=== PATIENT | male | born 1965 | race Two or more races ===

== ENCOUNTER 2020-06-10 17:41 | Emergency (ER) | payer MEDICAID ==
[~2020-06-10] VITALS: Ht 180.3 cm; Wt 139.7 kg
[~2020-06-10 17:41] MED LIST: ATOR20TA50 PO; CHOL500023 PO; GLIM4TAB42 PO; LATA0.0019 EACHEYE; LISI-648 PO; METF-916 PO; METH10TA6 PO; OMEP-263 PO
[2020-06-10 17:52] VITALS: BP 153/110
[2020-06-10] MEDS ORDERED: ACETAMINOPHEN 500 MG TAB PO ONE ×2 (20:15→20:52)
== END 2020-06-10 21:38 | disposition home or self-care (01) ==
LOC: ER 17:41 → MERGE 17:41 → ER 21:38
DX: U07.1 COVID-19 (principal); M25.551 Pain in right hip; E66.9 Obesity, unspecified; E11.9 Type 2 diabetes mellitus without complications; I10 Essential (primary) hypertension; Z68.41 Body mass index [BMI] 40.0-44.9, adult

== ENCOUNTER 2020-12-30 11:59 | Emergency (ER) | payer MEDICAID ==
[~2020-12-30] VITALS: Ht 170.2 cm; Wt 99.8 kg
[~2020-12-30 11:59] MED LIST changes: -LISI-648 PO; +LISI-716 PO
[2020-12-30 13:46] LABS: Basophils # (auto) 0 10 ^3/uL (0-0.2); Basophils % (auto) 0.5 % (0.0-2.0); Eosinophils # (auto) 0.2 10 ^3/uL (0-0.8); Eosinophils % (auto) 2.1 % (0.0-7.0); Hematocrit 40.8 % (41.0-53.0); Hemoglobin 13.6 g/dL (13.5-17.5); Lymphocytes # (auto) 2.1 10 ^3/uL (0.4-5.4); Lymphocytes % (auto) 27.9 % (10.0-50.0); Mean Corpuscular Hemoglobin 28.6 pg (28.0-32.0); Mean Corpuscular Hgb Conc. 33.4 g/dL (32.0-36.0); Mean Corpuscular Volume 85.7 fL (80.0-100.0); Monocytes # (auto) 0.4 10 ^3/uL (0-1.3); Monocytes % (auto) 5.7 % (0.0-12.0); Neutrophils # (auto) 4.9 10 ^3/uL (1.6-8.6); Neutrophils % (auto) 63.8 % (37.0-80.0); Nucleated Red Blood Cells % 0.1 %; Red Blood Cells 4.76 10^6/uL (4.5-5.90); Red Cell Distribution Width 15.2 % (11.8-14.3); White Blood Cell 7.7 10^3/uL (4.4-10.8)
[2020-12-30 13:55] LABS: Alcohol, Urine < 3.0 mg/dL (0-10); Amphetamine Screen, Urine NEGATIVE (NEGATIVE); Barbiturate Scree,Urine NEGATIVE (NEGATIVE); Benzodiazephine Screen, Urine NEGATIVE (NEGATIVE); Cannabinoid Screen, Urine NEGATIVE (NEGATIVE); Cocaine Screen, Urine NEGATIVE (NEGATIVE); Opiate Scree,Urine NEGATIVE (NEGATIVE); Phencyclidine Screen, Urine NEGATIVE (NEGATIVE); Urine Bacteria NONE SEEN /hpf (None Seen); Urine Blood Negative /uL (Negative); Urine Specific Gravity 1.012 (1.001-1.035); Urine WBC 1 /hpf (0 - 3)
[2020-12-30 14:15] LABS: Albumin 3.6 g/dL (3.4-5.0); Anion Gap 6 (5-15); Blood Urea Nitrogen 15 mg/dL (7-18); Calcium 8.8 mg/dL (8.5-10.1); Carbon Dioxide 28 mmol/L (21-32); Chloride 107 mmol/L (98-107); Glucose 67 mg/dL (74-106); Magnesium 2.2 mg/dL (1.6-2.6); Potassium 3.5 mmol/L (3.5-5.1); Sodium 141 mmol/L (136-145)
[2020-12-30 14:16] LABS: Salicylate 1.7 mg/dL (2.8-20.0)
[2020-12-30 14:18] LABS: Alanine Aminotransferase 20 U/L (16-61); Aspartate Aminotransferase 16 U/L (15-37); BUN/Creatinine Ratio 14.9; Blood Alcohol < 3.0 mg/dL (0-5); GFR African American 99 mL/min; GFR Non-African American 82 mL/min
[2020-12-30 14:20] LABS: Alkaline Phosphatase 99 U/L (45-117); Bilirubin, Total 0.4 mg/dL (0.2-1.0); Total Protein 8.3 g/dL (6.4-8.2)
[2020-12-30 14:28] LABS: Acetaminophen < 2.0 ug/mL (10-30)
[2020-12-30 22:15] VITALS: BP 127/71
== END 2020-12-30 22:13 | disposition home or self-care (01) ==
LOC: EDBD 11:59 → EDUNIT# 11:59 → ER 11:59
DX: R45.851 Suicidal ideations (principal); F32.9 Major depressive disorder, single episode, unspecified; E11.9 Type 2 diabetes mellitus without complications; I11.0 Hypertensive heart disease with heart failure; I50.9 Heart failure, unspecified
CPT/HCPCS: 36415; 80053; 80307; 80320; 80329; 81001; 83735; 85025; 85049

== ENCOUNTER 2021-05-06 04:46 | Inpatient (IN) | payer MEDICAID ==
[~2021-05-06] VITALS: Ht 170.2 cm; Wt 134.0 kg
[2021-05-06 05:57] LABS: Basophils # (auto) 0.1 10 ^3/uL (0-0.2); Basophils % (auto) 0.6 % (0.0-2.0); Eosinophils # (auto) 1.3 10 ^3/uL (0-0.8); Eosinophils % (auto) 13.3 % (0.0-7.0); Hematocrit 38.3 % (41.0-53.0); Hemoglobin 12.6 g/dL (13.5-17.5); Lymphocytes # (auto) 1.4 10 ^3/uL (0.4-5.4); Lymphocytes % (auto) 14.4 % (10.0-50.0); Monocytes # (auto) 0.6 10 ^3/uL (0-1.3); Monocytes % (auto) 5.9 % (0.0-12.0); Neutrophils # (auto) 6.4 10 ^3/uL (1.6-8.6); Neutrophils % (auto) 65.8 % (37.0-80.0); Red Blood Cells 4.51 10^6/uL (4.5-5.90); Red Cell Distribution Width 15.2 % (11.8-14.3); White Blood Cell 9.8 10^3/uL (4.4-10.8)
[2021-05-06 06:18] LABS: Albumin 2.9 g/dL (3.4-5.0); Calcium 8.9 mg/dL (8.5-10.1); Potassium 3.5 mmol/L (3.5-5.1)
[2021-05-06 06:19] LABS: BUN/Creatinine Ratio 14.3
[2021-05-06 06:25] LABS: Bilirubin, Total 0.5 mg/dL (0.2-1.0); Total Protein 7.7 g/dL (6.4-8.2)
[2021-05-06 06:29] LABS: INR 1.03 (0.9-1.15); Partial Thromboplastin Time 26.3 sec (23.6-33.0)
[2021-05-06] MEDS ORDERED: IOHEXOL 350 MG/ML 100ML IJ ONE (10:39)
[2021-05-06] MEDS ORDERED: methylPREDNISolone SOD SUCC 125 MG/2 ML VL IV ONE (15:15)
[2021-05-06] MEDS ORDERED: cefTRIAXone 1GM/50ML D5W 50 ML IV ONE (15:15)
[2021-05-06] MEDS ORDERED: SPIRONOLACTONE 25 MG TAB PO ONE (15:15)
[2021-05-06] MEDS ORDERED: FUROSEMIDE 40 MG/4 ML VIAL IV ONE (15:15)
[2021-05-06] MEDS ORDERED: NITROGLYCERIN 0.4 MG SL TAB SL PRN (15:45)
[2021-05-06] MEDS ORDERED: MORPHINE SULFATE INJECTION 2 MG/ML SYRG IV PRN (15:45)
[2021-05-06] MEDS ORDERED: ONDANSETRON HCL 4 MG/2 ML VIAL IV PRN (15:45)
[2021-05-06] MEDS ORDERED: HYDROcodone-ACET 5/325MG TAB PO PRN (15:45)
[2021-05-06] MEDS ORDERED: ACETAMINOPHEN 325 MG TAB PO PRN (15:45)
[2021-05-06] MEDS ORDERED: MORPHINE SULFATE 4 MG/ML SYR/VIAL IV PRN (15:45)
[2021-05-06] MEDS ORDERED: DOXYCYCLINE 100MG/250ML 250 ML IV ONE (15:45)
[2021-05-06] MEDS: FUROSEMIDE 40 MG/4 ML VIAL IV SCH (18:30)
[2021-05-06 22:00] VITALS: BP 131/53
[2021-05-07 05:00] VITALS: BP 120/60
[2021-05-07] MEDS: FUROSEMIDE 40 MG/4 ML VIAL IV SCH ×2 (05:50→17:03)
[2021-05-07 09:00] VITALS: BP 116/77
[2021-05-07] MEDS: ENOXAPARIN SOD 40 MG/0.4 ML SYRINGE SC SCH (10:14)
[2021-05-07] MEDS ORDERED: DEXTROSE (50%) 50ML SYRG IV PRN (12:30)
[2021-05-07 13:04] VITALS: BP 126/71
[2021-05-07] MEDS: DOXYCYCLINE 100MG/250ML 250 ML IV SCH (16:14)
[2021-05-07] MEDS: InsuLIN REG 1unit/0.01ml Soln (100units/ml) SC SCH ×2 (17:02→22:31)
[2021-05-07] MEDS: ACCU-CHEK COMFORT CURVE STRIP VI SCH ×2 (17:02→22:31)
[2021-05-07 17:05] VITALS: BP 124/71
[2021-05-07 22:00] VITALS: BP 116/74
[2021-05-08] MEDS: DOXYCYCLINE 100MG/250ML 250 ML IV SCH ×2 (01:00→15:01)
[2021-05-08 05:00] VITALS: BP 111/65
[2021-05-08] MEDS: ACCU-CHEK COMFORT CURVE STRIP VI SCH ×4 (06:29→21:54)
[2021-05-08] MEDS: FUROSEMIDE 40 MG/4 ML VIAL IV SCH ×2 (06:29→18:11)
[2021-05-08] MEDS: InsuLIN REG 1unit/0.01ml Soln (100units/ml) SC SCH ×4 (06:30→21:54)
[2021-05-08 08:30] VITALS: BP 111/61
[2021-05-08] MEDS: ENOXAPARIN SOD 40 MG/0.4 ML SYRINGE SC SCH (11:41)
[2021-05-08 12:30] VITALS: BP 100/67
[2021-05-08 17:00] VITALS: BP 110/70
[2021-05-08 20:22] VITALS: BP 101/71
[2021-05-09] MEDS: DOXYCYCLINE 100MG/250ML 250 ML IV SCH ×2 (02:33→13:40)
[2021-05-09 05:00] VITALS: BP 142/63
[2021-05-09] MEDS: ACCU-CHEK COMFORT CURVE STRIP VI SCH ×4 (06:14→21:41)
[2021-05-09] MEDS: InsuLIN REG 1unit/0.01ml Soln (100units/ml) SC SCH ×5 (06:33→21:39)
[2021-05-09] MEDS: FUROSEMIDE 40 MG/4 ML VIAL IV SCH ×2 (06:34→18:00)
[2021-05-09 09:00] VITALS: BP 104/67
[2021-05-09] MEDS: ENOXAPARIN SOD 40 MG/0.4 ML SYRINGE SC SCH (10:00)
[2021-05-09] MEDS ORDERED: IODIXANOL 320MG/ML 100ML BTL IV ONE (11:35)
[2021-05-09] MEDS ORDERED: LIDOCAINE 2%HCL (LOCAL ANESTH.) INJ 20ML MDV ONE (11:35)
[2021-05-09] MEDS ORDERED: MIDAZOLAM HCL 2MG/2ML 2ml VIAL (1mg/ml) ONE (11:57)
[2021-05-09] MEDS ORDERED: fentaNYL CITRATE 100 MCG/2 ML VL ONE (11:57)
[2021-05-09] MEDS ORDERED: ANGIOMAX 250 MG VIAL IV ONE (11:57)
[2021-05-09] MEDS ORDERED: SODIUM CHL 0.9% 0 ML ONE (11:57)
[2021-05-09 17:13] VITALS: BP 118/73
[2021-05-09 19:37] VITALS: BP 118/73
== END 2021-05-09 22:45 | disposition home or self-care (01) | DRG 194 ==
LOC: EDBD 04:46 → ER 04:46 → TELE 15:41 → TELE-CENTR 20:32
PROVIDERS: ADMIT Internal Medicine; ATTEND Internal Medicine
PROC: B41GYZZ Fluoroscopy of Left Lower Extremity Arteries using Other Contrast (ICD-10-PCS; principal; 2021-05-09)
PROC: B41FYZZ Fluoroscopy of Right Lower Extremity Arteries using Other Contrast (ICD-10-PCS; 2021-05-09)
DX: I11.0 Hypertensive heart disease with heart failure (principal); E11.9 Type 2 diabetes mellitus without complications; E66.01 Morbid (severe) obesity due to excess calories; L02.419 Cutaneous abscess of limb, unspecified; I87.2 Venous insufficiency (chronic) (peripheral); I50.9 Heart failure, unspecified; K80.20 Calculus of gallbladder without cholecystitis without obstruction; Z20.822 Contact with and (suspected) exposure to COVID-19; Z68.42 Body mass index [BMI] 45.0-49.9, adult; Z80.0 Family history of malignant neoplasm of digestive organs; Z82.49 Family history of ischemic heart disease and other diseases of the circulatory system; Z83.3 Family history of diabetes mellitus
CPT/HCPCS: 36415; 71045; 71275; 75716; 80053; 82962; 83036; 83735; 83880; 84443; 84484; 85025; 85379; 85610; 85652; 85730; 87426; 93005; 93306; 93925; 93970; 96365; 96368; 96375; 99152; G0378; J0696; J1815; J2250; J3490; Q9967

== ENCOUNTER 2021-12-19 13:24 | Inpatient (IN) | payer MEDICAID ==
[~2021-12-19] VITALS: Ht 172.7 cm; Wt 127.9 kg
[2021-12-19] MEDS ORDERED: DEXTROSE (50%) 50ML SYRG IV ONE ×4 (14:15→15:30)
[2021-12-19 14:18] LABS: Basophils # (auto) 0 10 ^3/uL (0-0.2); Basophils % (auto) 0.3 % (0.0-2.0); Eosinophils # (auto) 0 10 ^3/uL (0-0.8); Eosinophils % (auto) 0.1 % (0.0-7.0); Hemoglobin 12.1 g/dL (13.5-17.5); Lymphocytes # (auto) 1.1 10 ^3/uL (0.4-5.4); Lymphocytes % (auto) 9.5 % (10.0-50.0); Mean Corpuscular Hemoglobin 27.5 pg (28.0-32.0); Mean Corpuscular Hgb Conc. 33.7 g/dL (32.0-36.0); Mean Corpuscular Volume 81.8 fL (80.0-100.0); Monocytes # (auto) 0.4 10 ^3/uL (0-1.3); Monocytes % (auto) 3.8 % (0.0-12.0); Neutrophils # (auto) 9.6 10 ^3/uL (1.6-8.6); Neutrophils % (auto) 86.3 % (37.0-80.0); Red Cell Distribution Width 15.2 % (11.8-14.3); White Blood Cell 11.1 10^3/uL (4.4-10.8)
[2021-12-19 14:39] LABS: Albumin 3.1 g/dL (3.4-5.0); Calcium 8.6 mg/dL (8.5-10.1); Potassium 3.4 mmol/L (3.5-5.1)
[2021-12-19 14:43] LABS: BUN/Creatinine Ratio 11.1; Bilirubin, Total 0.3 mg/dL (0.2-1.0); Total Protein 7.4 g/dL (6.4-8.2)
[2021-12-19] MEDS ORDERED: ACCU-CHEK COMFORT CURVE STRIP VI ONE ×2 (15:00→15:15)
[2021-12-19 15:17] LABS: Salicylate < 1.7 mg/dL (2.8-20.0)
[2021-12-19 15:26] LABS: Acetaminophen < 2.0 ug/mL (10-30)
[2021-12-19] MEDS: DEXTROSE 10% 1,000 ML IV SCH (17:01)
[2021-12-19] MEDS ORDERED: ACETAMINOPHEN 325 MG TAB PO PRN (21:30)
[2021-12-19] MEDS ORDERED: HYDROcodone-ACET 5/325MG TAB PO PRN (21:30)
[2021-12-19] MEDS: ACCU-CHEK COMFORT CURVE STRIP VI SCH (23:30)
[2021-12-20] MEDS: FAMOTIDINE 20 MG TAB PO SCH ×3 (00:20→22:18)
[2021-12-20 00:34] LABS: Alcohol, Urine < 3.0 mg/dL (0-10); Amphetamine Screen, Urine NEGATIVE (NEGATIVE); Barbiturate Scree,Urine NEGATIVE (NEGATIVE); Cannabinoid Screen, Urine NEGATIVE (NEGATIVE); Cocaine Screen, Urine NEGATIVE (NEGATIVE); Opiate Scree,Urine NEGATIVE (NEGATIVE); Phencyclidine Screen, Urine NEGATIVE (NEGATIVE)
[2021-12-20 00:56] LABS: Benzodiazephine Screen, Urine NEGATIVE (NEGATIVE)
[2021-12-20] MEDS: levoFLOXacin 500MG 100 ML IV SCH ×2 (02:57→10:14)
[2021-12-20] MEDS: DEXTROSE 10% 1,000 ML IV SCH ×3 (03:41→23:19)
[2021-12-20 06:15] LABS: Basophils # (auto) 0.1 10 ^3/uL (0-0.2); Basophils % (auto) 0.7 % (0.0-2.0); Eosinophils # (auto) 0.1 10 ^3/uL (0-0.8); Eosinophils % (auto) 1.4 % (0.0-7.0); Lymphocytes # (auto) 1.5 10 ^3/uL (0.4-5.4); Lymphocytes % (auto) 15.2 % (10.0-50.0); Mean Corpuscular Hemoglobin 27.4 pg (28.0-32.0); Mean Corpuscular Hgb Conc. 33.4 g/dL (32.0-36.0); Mean Corpuscular Volume 81.9 fL (80.0-100.0); Monocytes # (auto) 0.7 10 ^3/uL (0-1.3); Monocytes % (auto) 6.8 % (0.0-12.0); Neutrophils # (auto) 7.6 10 ^3/uL (1.6-8.6); Neutrophils % (auto) 75.9 % (37.0-80.0); Red Blood Cells 4.39 10^6/uL (4.5-5.90); Red Cell Distribution Width 14.9 % (11.8-14.3)
[2021-12-20 06:32] LABS: BUN/Creatinine Ratio 11.4; Calcium 8.5 mg/dL (8.5-10.1); Potassium 3.3 mmol/L (3.5-5.1)
[2021-12-20] MEDS ORDERED: DEXTROSE (50%) 50ML SYRG IV ONE ×4 (07:15→15:15)
[2021-12-20] MEDS: ACCU-CHEK COMFORT CURVE STRIP VI SCH ×4 (07:26→22:15)
[2021-12-20 10:29] LABS: Urine Bacteria NONE SEEN /hpf (None Seen); Urine Blood Negative /uL (Negative); Urine Specific Gravity 1.007 (1.001-1.035); Urine WBC 3 /hpf (0 - 3)
[2021-12-20] MEDS ORDERED: POTASSIUM CHL 20MEQ/100ML 100 ML IV ONE (13:30)
[2021-12-20] MEDS ORDERED: NITROGLYCERIN 0.4 MG SL TAB SL PRN (13:30)
[2021-12-20] MEDS ORDERED: MORPHINE SULFATE INJ 2 MG/ml SYRG IV PRN ×2 (13:30→15:30)
[2021-12-20] MEDS ORDERED: POTASSIUM EFFERVESENT TAB 25 MEQ PO ONE (14:15)
[2021-12-20 14:33] LABS: BUN/Creatinine Ratio 9.7; Calcium 8.7 mg/dL (8.5-10.1); Potassium 3.5 mmol/L (3.5-5.1)
[2021-12-20] MEDS ORDERED: GLUCAGON HYDROCHLORIDE (RDNA) 1 MG VIAL SUBCUT ONE (15:15)
[2021-12-20] MEDS ORDERED: ACETAMINOPHEN 325 MG TAB PO PRN (15:30)
[2021-12-20] MEDS: SODIUM CHLORIDE 0.9% 1,000 ML IV SCH (15:30)
[2021-12-20] MEDS ORDERED: hydrALAZINE HCL 20 MG/ML VL IV PRN (15:30)
[2021-12-20] MEDS ORDERED: LORazepam 2MG/ML-1ML VIAL IV PRN (15:30)
[2021-12-20] MEDS ORDERED: HYDROcodone-ACET 5/325MG TAB PO PRN (15:30)
[2021-12-20] MEDS ORDERED: LORazepam 0.5 MG TAB PO PRN (15:30)
[2021-12-20] MEDS ORDERED: ONDANSETRON HCL 4 MG/2 ML VIAL IV PRN (15:30)
[2021-12-20] MEDS ORDERED: DOCUSATE SOD 100 MG CAP PO PRN (15:30)
[2021-12-20] MEDS ORDERED: methIMAzole 5 MG TAB PO ONE (15:30)
[2021-12-20] MEDS: DOXYCYCLINE 100MG/250ML 250 ML IV SCH (16:11)
[2021-12-20 17:40] LABS: INR 1.1 (0.9-1.15)
[2021-12-20 17:44] LABS: Magnesium 2.3 mg/dL (1.6-2.6)
[2021-12-20] MEDS: TAMSULOSIN HYDROCHLORIDE 0.4 MG CAP PO SCH (18:00)
[2021-12-20] MEDS: ATORVASTATIN 20 MG TAB PO SCH (22:18)
[2021-12-20] MEDS: CLINDAMYCIN 600MG IV 50 ML IV SCH (22:19)
[2021-12-20] MEDS: GABAPENTIN 300 MG CAP PO SCH (22:21)
[2021-12-21] MEDS: DOXYCYCLINE 100MG/250ML 250 ML IV SCH (03:47)
[2021-12-21] MEDS: GABAPENTIN 300 MG CAP PO SCH ×3 (05:57→21:18)
[2021-12-21] MEDS: CLINDAMYCIN 600MG IV 50 ML IV SCH (05:57)
[2021-12-21 06:30] LABS: Basophils # (auto) 0.2 10 ^3/uL (0-0.2); Basophils % (auto) 2.1 % (0.0-2.0); Eosinophils # (auto) 0.2 10 ^3/uL (0-0.8); Eosinophils % (auto) 2.2 % (0.0-7.0); Hematocrit 35.5 % (41.0-53.0); Hemoglobin 12.2 g/dL (13.5-17.5); Lymphocytes # (auto) 1.4 10 ^3/uL (0.4-5.4); Lymphocytes % (auto) 17.1 % (10.0-50.0); Mean Corpuscular Hemoglobin 28.3 pg (28.0-32.0); Mean Corpuscular Hgb Conc. 34.4 g/dL (32.0-36.0); Mean Corpuscular Volume 82.5 fL (80.0-100.0); Monocytes # (auto) 0.6 10 ^3/uL (0-1.3); Monocytes % (auto) 7.4 % (0.0-12.0); Neutrophils # (auto) 5.9 10 ^3/uL (1.6-8.6); Neutrophils % (auto) 71.2 % (37.0-80.0); Nucleated Red Blood Cells % 0.1 %; Red Blood Cells 4.31 10^6/uL (4.5-5.90); White Blood Cell 8.3 10^3/uL (4.4-10.8)
[2021-12-21 06:45] LABS: INR 1.12 (0.9-1.15); Partial Thromboplastin Time 28.7 sec (23.6-33.0)
[2021-12-21 06:46] LABS: Magnesium 2.2 mg/dL (1.6-2.6); Potassium 3.2 mmol/L (3.5-5.1); Uric Acid 5.2 mg/dL (3.5-7.2)
[2021-12-21] MEDS: ACCU-CHEK COMFORT CURVE STRIP VI SCH ×4 (06:48→21:17)
[2021-12-21 06:57] LABS: Albumin 2.7 g/dL (3.4-5.0); Bilirubin, Total 0.5 mg/dL (0.2-1.0); CRP High Sensitivity 0.78 mg/dL (< 0.3); Calcium 8.4 mg/dL (8.5-10.1); Total Protein 6.6 g/dL (6.4-8.2)
[2021-12-21 08:10] VITALS: BP 141/70
[2021-12-21] MEDS: SODIUM CHLORIDE 0.9% 1,000 ML IV SCH (08:10)
[2021-12-21] MEDS: DEXTROSE 10% 1,000 ML IV SCH ×2 (09:00→19:00)
[2021-12-21 09:24] LABS: Thyroid Stimulating Hormone 0.76 uIU/mL (0.358-3.74)
[2021-12-21] MEDS: levoFLOXacin 500MG 100 ML IV SCH (10:57)
[2021-12-21] MEDS: ASPirin 81 mg TAB PO SCH (10:57)
[2021-12-21] MEDS: BENAZEPRIL HCL 10 MG TAB PO SCH (10:58)
[2021-12-21] MEDS: FAMOTIDINE 20 MG TAB PO SCH ×2 (10:58→21:18)
[2021-12-21] MEDS: ENOXAPARIN SOD 40 MG/0.4 ML SYRINGE SC SCH (10:59)
[2021-12-21] MEDS: CHOLECALCIFEROL (VITD3) 2,000 UNIT CAP/TAB PO SCH (10:59)
[2021-12-21] MEDS: methIMAzole 5 MG TAB PO SCH (10:59)
[2021-12-21 13:00] VITALS: BP 123/53
[2021-12-21 17:00] VITALS: BP 126/59
[2021-12-21] MEDS: TAMSULOSIN HYDROCHLORIDE 0.4 MG CAP PO SCH (18:21)
[2021-12-21] MEDS: ATORVASTATIN 20 MG TAB PO SCH (21:19)
[2021-12-21 22:02] VITALS: BP 122/61
[2021-12-22] MEDS: SODIUM CHLORIDE 0.9% 1,000 ML IV SCH (00:46)
[2021-12-22] MEDS: DEXTROSE 10% 1,000 ML IV SCH (04:02)
[2021-12-22] MEDS: GABAPENTIN 300 MG CAP PO SCH ×3 (06:02→21:59)
[2021-12-22] MEDS: ACCU-CHEK COMFORT CURVE STRIP VI SCH ×4 (06:03→22:00)
[2021-12-22 07:51] LABS: Basophils # (auto) 0.1 10 ^3/uL (0-0.2); Eosinophils # (auto) 0.3 10 ^3/uL (0-0.8); Eosinophils % (auto) 3.6 % (0.0-7.0); Hematocrit 35.7 % (41.0-53.0); Hemoglobin 12.1 g/dL (13.5-17.5); Lymphocytes # (auto) 1.9 10 ^3/uL (0.4-5.4); Lymphocytes % (auto) 25.3 % (10.0-50.0); Mean Corpuscular Hemoglobin 27.9 pg (28.0-32.0); Mean Corpuscular Hgb Conc. 33.9 g/dL (32.0-36.0); Mean Corpuscular Volume 82.3 fL (80.0-100.0); Monocytes # (auto) 0.4 10 ^3/uL (0-1.3); Monocytes % (auto) 5.8 % (0.0-12.0); Neutrophils # (auto) 4.7 10 ^3/uL (1.6-8.6); Neutrophils % (auto) 64.3 % (37.0-80.0); Nucleated Red Blood Cells % 0.1 %; Red Blood Cells 4.33 10^6/uL (4.5-5.90); Red Cell Distribution Width 14.9 % (11.8-14.3); White Blood Cell 7.3 10^3/uL (4.4-10.8)
[2021-12-22 08:02] LABS: BUN/Creatinine Ratio 15.1; Calcium 8.6 mg/dL (8.5-10.1); Potassium 3.7 mmol/L (3.5-5.1)
[2021-12-22 09:00] VITALS: BP 107/53
[2021-12-22] MEDS: methIMAzole 5 MG TAB PO SCH (09:59)
[2021-12-22] MEDS: ASPirin 81 mg TAB PO SCH (09:59)
[2021-12-22] MEDS: CHOLECALCIFEROL (VITD3) 2,000 UNIT CAP/TAB PO SCH (09:59)
[2021-12-22] MEDS: FAMOTIDINE 20 MG TAB PO SCH ×2 (09:59→22:00)
[2021-12-22] MEDS: levoFLOXacin 500MG 100 ML IV SCH (10:00)
[2021-12-22] MEDS: ENOXAPARIN SOD 40 MG/0.4 ML SYRINGE SC SCH (10:00)
[2021-12-22] MEDS: BENAZEPRIL HCL 10 MG TAB PO SCH (10:00)
[2021-12-22 10:31] LABS: Urine Bacteria NONE SEEN /hpf (None Seen); Urine Blood Negative /uL (Negative); Urine Mucus FEW (None Seen); Urine Specific Gravity 1.018 (1.001-1.035); Urine WBC 1 /hpf (0 - 3)
[2021-12-22 10:33] LABS: Alcohol, Urine < 3.0 mg/dL (0-10); Amphetamine Screen, Urine NEGATIVE (NEGATIVE); Barbiturate Scree,Urine NEGATIVE (NEGATIVE); Benzodiazephine Screen, Urine NEGATIVE (NEGATIVE); Cannabinoid Screen, Urine NEGATIVE (NEGATIVE); Cocaine Screen, Urine NEGATIVE (NEGATIVE); Opiate Scree,Urine NEGATIVE (NEGATIVE); Phencyclidine Screen, Urine NEGATIVE (NEGATIVE); Protein, Urine 43.9 mg/dL (0.0-11.9)
[2021-12-22 13:00] VITALS: BP 128/64
[2021-12-22 17:00] VITALS: BP 111/51
[2021-12-22] MEDS: TAMSULOSIN HYDROCHLORIDE 0.4 MG CAP PO SCH (18:02)
[2021-12-22 21:41] VITALS: BP 122/68
[2021-12-23] MEDS: ATORVASTATIN 20 MG TAB PO SCH ×2 (00:13→21:47)
[2021-12-23 05:01] VITALS: BP 128/68
[2021-12-23] MEDS: ACCU-CHEK COMFORT CURVE STRIP VI SCH ×4 (05:54→21:47)
[2021-12-23] MEDS: GABAPENTIN 300 MG CAP PO SCH ×3 (05:54→21:47)
[2021-12-23 06:06] LABS: Basophils # (auto) 0.2 10 ^3/uL (0-0.2); Basophils % (auto) 1.8 % (0.0-2.0); Eosinophils # (auto) 0.3 10 ^3/uL (0-0.8); Eosinophils % (auto) 3.8 % (0.0-7.0); Hematocrit 35.1 % (41.0-53.0); Lymphocytes # (auto) 1.9 10 ^3/uL (0.4-5.4); Lymphocytes % (auto) 20.7 % (10.0-50.0); Mean Corpuscular Hemoglobin 27.8 pg (28.0-32.0); Mean Corpuscular Hgb Conc. 34.1 g/dL (32.0-36.0); Mean Corpuscular Volume 81.5 fL (80.0-100.0); Monocytes # (auto) 0.4 10 ^3/uL (0-1.3); Monocytes % (auto) 4.7 % (0.0-12.0); Neutrophils # (auto) 6.3 10 ^3/uL (1.6-8.6); Red Blood Cells 4.31 10^6/uL (4.5-5.90); Red Cell Distribution Width 14.4 % (11.8-14.3); White Blood Cell 9.1 10^3/uL (4.4-10.8)
[2021-12-23 06:22] LABS: BUN/Creatinine Ratio 16.7; Potassium 3.7 mmol/L (3.5-5.1)
[2021-12-23 09:00] VITALS: BP 106/64
[2021-12-23] MEDS: ASPirin 81 mg TAB PO SCH (10:40)
[2021-12-23] MEDS ORDERED: DULoxetine HCL 30 MG CAP PO ONE (10:45)
[2021-12-23] MEDS: levoFLOXacin 500MG 100 ML IV SCH (10:56)
[2021-12-23] MEDS: FAMOTIDINE 20 MG TAB PO SCH ×2 (10:57→21:47)
[2021-12-23] MEDS: BENAZEPRIL HCL 10 MG TAB PO SCH (10:57)
[2021-12-23] MEDS: ENOXAPARIN SOD 40 MG/0.4 ML SYRINGE SC SCH (10:59)
[2021-12-23] MEDS: CHOLECALCIFEROL (VITD3) 2,000 UNIT CAP/TAB PO SCH (10:59)
[2021-12-23] MEDS: methIMAzole 5 MG TAB PO SCH (10:59)
[2021-12-23 13:00] VITALS: BP 135/74
[2021-12-23] MEDS: TAMSULOSIN HYDROCHLORIDE 0.4 MG CAP PO SCH (20:43)
[2021-12-23 22:00] VITALS: BP 144/77
[2021-12-24 05:00] VITALS: BP 115/60
[2021-12-24] MEDS: GABAPENTIN 300 MG CAP PO SCH ×3 (06:00→22:00)
[2021-12-24] MEDS: ACCU-CHEK COMFORT CURVE STRIP VI SCH ×4 (06:58→22:15)
[2021-12-24] MEDS: BENAZEPRIL HCL 10 MG TAB PO SCH (10:00)
[2021-12-24] MEDS: CHOLECALCIFEROL (VITD3) 2,000 UNIT CAP/TAB PO SCH (10:00)
[2021-12-24] MEDS: ENOXAPARIN SOD 40 MG/0.4 ML SYRINGE SC SCH (10:00)
[2021-12-24] MEDS: levoFLOXacin 500MG 100 ML IV SCH (11:04)
[2021-12-24] MEDS: methIMAzole 5 MG TAB PO SCH (11:04)
[2021-12-24] MEDS: FAMOTIDINE 20 MG TAB PO SCH ×2 (11:04→22:15)
[2021-12-24] MEDS: DULoxetine HCL 30 MG CAP PO SCH (11:05)
[2021-12-24] MEDS: ASPirin 81 mg TAB PO SCH (11:06)
[2021-12-24] MEDS: TAMSULOSIN HYDROCHLORIDE 0.4 MG CAP PO SCH (18:00)
[2021-12-24 22:00] VITALS: BP 122/57
[2021-12-24] MEDS: ATORVASTATIN 20 MG TAB PO SCH (22:14)
[2021-12-25 05:00] VITALS: BP 113/71
[2021-12-25] MEDS: GABAPENTIN 300 MG CAP PO SCH ×3 (05:55→21:37)
[2021-12-25] MEDS: ACCU-CHEK COMFORT CURVE STRIP VI SCH ×4 (06:33→21:38)
[2021-12-25] MEDS: FAMOTIDINE 20 MG TAB PO SCH ×2 (10:42→21:37)
[2021-12-25] MEDS: CHOLECALCIFEROL (VITD3) 2,000 UNIT CAP/TAB PO SCH (10:42)
[2021-12-25] MEDS: DULoxetine HCL 30 MG CAP PO SCH (10:42)
[2021-12-25] MEDS: methIMAzole 5 MG TAB PO SCH (10:43)
[2021-12-25] MEDS: ASPirin 81 mg TAB PO SCH (10:43)
[2021-12-25] MEDS: levoFLOXacin 500MG 100 ML IV SCH (10:44)
[2021-12-25] MEDS: ENOXAPARIN SOD 40 MG/0.4 ML SYRINGE SC SCH (10:47)
[2021-12-25] MEDS: BENAZEPRIL HCL 10 MG TAB PO SCH (10:47)
[2021-12-25] MEDS: TAMSULOSIN HYDROCHLORIDE 0.4 MG CAP PO SCH (18:27)
[2021-12-25] MEDS: ATORVASTATIN 20 MG TAB PO SCH (21:37)
[2021-12-25 22:00] VITALS: BP 130/54
[2021-12-26 05:00] VITALS: BP 123/61
[2021-12-26 05:15] LABS: Basophils # (auto) 0.1 10 ^3/uL (0-0.2); Basophils % (auto) 0.8 % (0.0-2.0); Eosinophils # (auto) 0.3 10 ^3/uL (0-0.8); Eosinophils % (auto) 3.4 % (0.0-7.0); Hematocrit 36.6 % (41.0-53.0); Hemoglobin 12.6 g/dL (13.5-17.5); Lymphocytes # (auto) 1.8 10 ^3/uL (0.4-5.4); Mean Corpuscular Hemoglobin 28.3 pg (28.0-32.0); Mean Corpuscular Hgb Conc. 34.4 g/dL (32.0-36.0); Mean Corpuscular Volume 82.3 fL (80.0-100.0); Monocytes # (auto) 0.8 10 ^3/uL (0-1.3); Monocytes % (auto) 9.2 % (0.0-12.0); Neutrophils # (auto) 5.8 10 ^3/uL (1.6-8.6); Neutrophils % (auto) 66.6 % (37.0-80.0); Red Blood Cells 4.45 10^6/uL (4.5-5.90); Red Cell Distribution Width 14.6 % (11.8-14.3); White Blood Cell 8.7 10^3/uL (4.4-10.8)
[2021-12-26 05:30] LABS: BUN/Creatinine Ratio 15.4; Calcium 9.1 mg/dL (8.5-10.1); Potassium 3.5 mmol/L (3.5-5.1)
[2021-12-26] MEDS: GABAPENTIN 300 MG CAP PO SCH ×3 (06:08→21:14)
[2021-12-26] MEDS: ACCU-CHEK COMFORT CURVE STRIP VI SCH ×4 (06:08→21:15)
[2021-12-26 09:00] VITALS: BP 117/63
[2021-12-26] MEDS: methIMAzole 5 MG TAB PO SCH (09:53)
[2021-12-26] MEDS: ASPirin 81 mg TAB PO SCH (09:53)
[2021-12-26] MEDS: FAMOTIDINE 20 MG TAB PO SCH (09:53)
[2021-12-26] MEDS: DULoxetine HCL 30 MG CAP PO SCH (09:53)
[2021-12-26] MEDS: CHOLECALCIFEROL (VITD3) 2,000 UNIT CAP/TAB PO SCH (09:54)
[2021-12-26] MEDS: levoFLOXacin 500MG 100 ML IV SCH (09:55)
[2021-12-26] MEDS: ENOXAPARIN SOD 40 MG/0.4 ML SYRINGE SC SCH (09:55)
[2021-12-26] MEDS: BENAZEPRIL HCL 10 MG TAB PO SCH (09:58)
[2021-12-26 13:00] VITALS: BP 111/59
[2021-12-26 17:00] VITALS: BP 113/53
[2021-12-26] MEDS: TAMSULOSIN HYDROCHLORIDE 0.4 MG CAP PO SCH (17:53)
[2021-12-26] MEDS: ATORVASTATIN 20 MG TAB PO SCH (21:13)
[2021-12-26 21:49] VITALS: BP 102/63
[2021-12-27 05:00] VITALS: BP 110/65
[2021-12-27] MEDS: ACCU-CHEK COMFORT CURVE STRIP VI SCH ×4 (05:05→22:13)
[2021-12-27] MEDS: GABAPENTIN 300 MG CAP PO SCH ×3 (06:06→22:12)
[2021-12-27 09:00] VITALS: BP 115/63
[2021-12-27] MEDS: ENOXAPARIN SOD 40 MG/0.4 ML SYRINGE SC SCH (10:00)
[2021-12-27] MEDS: levoFLOXacin 500MG 100 ML IV SCH (10:00)
[2021-12-27] MEDS: DULoxetine HCL 30 MG CAP PO SCH (10:31)
[2021-12-27] MEDS: ASPirin 81 mg TAB PO SCH (10:31)
[2021-12-27] MEDS: BENAZEPRIL HCL 10 MG TAB PO SCH (10:32)
[2021-12-27] MEDS: PANTOPRAZOLE 40 MG TAB PO SCH (10:32)
[2021-12-27] MEDS: methIMAzole 5 MG TAB PO SCH (10:33)
[2021-12-27] MEDS: CHOLECALCIFEROL (VITD3) 2,000 UNIT CAP/TAB PO SCH (10:33)
[2021-12-27 12:38] VITALS: BP 115/64
[2021-12-27 17:00] VITALS: BP 110/66
[2021-12-27] MEDS: TAMSULOSIN HYDROCHLORIDE 0.4 MG CAP PO SCH (17:33)
[2021-12-27 22:00] VITALS: BP 116/52
[2021-12-27] MEDS: ATORVASTATIN 20 MG TAB PO SCH (22:12)
[2021-12-28 05:00] VITALS: BP 135/53
[2021-12-28] MEDS: GABAPENTIN 300 MG CAP PO SCH ×3 (06:09→22:37)
[2021-12-28] MEDS: ACCU-CHEK COMFORT CURVE STRIP VI SCH ×4 (06:09→22:37)
[2021-12-28 09:24] VITALS: BP 96/63
[2021-12-28] MEDS ORDERED: guaiFENesin-DM 100/10mg/5ml SYR PO ONE (09:45)
[2021-12-28] MEDS ORDERED: guaiFENesin-DM 100/10mg/5ml SYR PO PRN (09:45)
[2021-12-28] MEDS: BENAZEPRIL HCL 10 MG TAB PO SCH (10:00)
[2021-12-28] MEDS: DULoxetine HCL 30 MG CAP PO SCH (10:34)
[2021-12-28] MEDS: levoFLOXacin 500MG 100 ML IV SCH (10:34)
[2021-12-28] MEDS: ASPirin 81 mg TAB PO SCH (10:34)
[2021-12-28] MEDS: CHOLECALCIFEROL (VITD3) 2,000 UNIT CAP/TAB PO SCH (10:39)
[2021-12-28] MEDS: PANTOPRAZOLE 40 MG TAB PO SCH (11:17)
[2021-12-28] MEDS: methIMAzole 5 MG TAB PO SCH (11:17)
[2021-12-28] MEDS: ENOXAPARIN SOD 40 MG/0.4 ML SYRINGE SC SCH (11:18)
[2021-12-28 12:36] VITALS: BP 99/54
[2021-12-28 16:23] VITALS: BP 103/63
[2021-12-28] MEDS: TAMSULOSIN HYDROCHLORIDE 0.4 MG CAP PO SCH (17:25)
[2021-12-28 22:00] VITALS: BP 108/54
[2021-12-28] MEDS: ATORVASTATIN 20 MG TAB PO SCH (22:37)
[2021-12-29 04:32] VITALS: BP 105/50
[2021-12-29] MEDS: ACCU-CHEK COMFORT CURVE STRIP VI SCH ×4 (06:36→21:34)
[2021-12-29] MEDS: GABAPENTIN 300 MG CAP PO SCH ×3 (06:36→21:34)
[2021-12-29 08:00] VITALS: BP 111/60
[2021-12-29 13:00] VITALS: BP 121/60
[2021-12-29] MEDS: levoFLOXacin 500MG 100 ML IV SCH (16:45)
[2021-12-29] MEDS: DULoxetine HCL 30 MG CAP PO SCH (16:46)
[2021-12-29] MEDS: ASPirin 81 mg TAB PO SCH (16:46)
[2021-12-29] MEDS: CHOLECALCIFEROL (VITD3) 2,000 UNIT CAP/TAB PO SCH (16:47)
[2021-12-29] MEDS: PANTOPRAZOLE 40 MG TAB PO SCH (16:47)
[2021-12-29] MEDS: methIMAzole 5 MG TAB PO SCH (16:47)
[2021-12-29] MEDS: BENAZEPRIL HCL 10 MG TAB PO SCH (16:47)
[2021-12-29] MEDS: ENOXAPARIN SOD 40 MG/0.4 ML SYRINGE SC SCH (16:48)
[2021-12-29 17:00] VITALS: BP 104/54
[2021-12-29] MEDS: TAMSULOSIN HYDROCHLORIDE 0.4 MG CAP PO SCH (18:08)
[2021-12-29] MEDS: ATORVASTATIN 20 MG TAB PO SCH (21:33)
[2021-12-29 22:00] VITALS: BP 103/67
[2021-12-30 05:00] VITALS: BP 124/77
[2021-12-30] MEDS: GABAPENTIN 300 MG CAP PO SCH ×3 (06:35→21:42)
[2021-12-30] MEDS: ACCU-CHEK COMFORT CURVE STRIP VI SCH ×4 (06:39→21:42)
[2021-12-30 09:11] VITALS: BP 90/36
[2021-12-30] MEDS: CHOLECALCIFEROL (VITD3) 2,000 UNIT CAP/TAB PO SCH (10:45)
[2021-12-30] MEDS: levoFLOXacin 500MG 100 ML IV SCH (10:45)
[2021-12-30] MEDS: ASPirin 81 mg TAB PO SCH (10:46)
[2021-12-30] MEDS: PANTOPRAZOLE 40 MG TAB PO SCH (10:46)
[2021-12-30] MEDS: ENOXAPARIN SOD 40 MG/0.4 ML SYRINGE SC SCH (10:47)
[2021-12-30] MEDS: DULoxetine HCL 30 MG CAP PO SCH (10:47)
[2021-12-30] MEDS: methIMAzole 5 MG TAB PO SCH (10:47)
[2021-12-30] MEDS: BENAZEPRIL HCL 10 MG TAB PO SCH (10:50)
[2021-12-30 13:08] VITALS: BP 97/52
[2021-12-30 17:29] VITALS: BP 90/40
[2021-12-30] MEDS: TAMSULOSIN HYDROCHLORIDE 0.4 MG CAP PO SCH (18:30)
[2021-12-30] MEDS: ATORVASTATIN 20 MG TAB PO SCH (21:42)
[2021-12-30 22:00] VITALS: BP 106/46
[2021-12-31 05:00] VITALS: BP 108/59
[2021-12-31] MEDS: GABAPENTIN 300 MG CAP PO SCH ×3 (06:34→22:05)
[2021-12-31] MEDS: ACCU-CHEK COMFORT CURVE STRIP VI SCH ×4 (06:34→22:04)
[2021-12-31 08:40] VITALS: BP 104/57
[2021-12-31] MEDS: methIMAzole 5 MG TAB PO SCH (10:13)
[2021-12-31] MEDS: ASPirin 81 mg TAB PO SCH (10:13)
[2021-12-31] MEDS: DULoxetine HCL 30 MG CAP PO SCH (10:13)
[2021-12-31] MEDS: CHOLECALCIFEROL (VITD3) 2,000 UNIT CAP/TAB PO SCH (10:13)
[2021-12-31] MEDS: PANTOPRAZOLE 40 MG TAB PO SCH (10:14)
[2021-12-31] MEDS: ENOXAPARIN SOD 40 MG/0.4 ML SYRINGE SC SCH (10:15)
[2021-12-31] MEDS: BENAZEPRIL HCL 10 MG TAB PO SCH (12:41)
[2021-12-31 13:00] VITALS: BP 117/81
[2021-12-31 17:05] VITALS: BP 107/52
[2021-12-31] MEDS: TAMSULOSIN HYDROCHLORIDE 0.4 MG CAP PO SCH (18:21)
[2021-12-31 20:00] VITALS: BP 114/54
[2021-12-31 21:32] VITALS: BP 114/54
[2021-12-31] MEDS: ATORVASTATIN 20 MG TAB PO SCH (22:05)
[2022-01-01] VITALS (7 sets, daily range): BP systolic 102–134; BP diastolic 38–70
[2022-01-01] MEDS: GABAPENTIN 300 MG CAP PO SCH ×3 (06:18→21:57)
[2022-01-01] MEDS: ACCU-CHEK COMFORT CURVE STRIP VI SCH ×4 (06:39→22:07)
[2022-01-01] MEDS: BENAZEPRIL HCL 10 MG TAB PO SCH (09:49)
[2022-01-01] MEDS: ASPirin 81 mg TAB PO SCH (09:49)
[2022-01-01] MEDS: methIMAzole 5 MG TAB PO SCH (09:50)
[2022-01-01] MEDS: ENOXAPARIN SOD 40 MG/0.4 ML SYRINGE SC SCH (09:50)
[2022-01-01] MEDS: DULoxetine HCL 30 MG CAP PO SCH (09:50)
[2022-01-01] MEDS: CHOLECALCIFEROL (VITD3) 2,000 UNIT CAP/TAB PO SCH (09:50)
[2022-01-01] MEDS: PANTOPRAZOLE 40 MG TAB PO SCH (09:50)
[2022-01-01] MEDS: TAMSULOSIN HYDROCHLORIDE 0.4 MG CAP PO SCH (18:23)
[2022-01-01] MEDS: ATORVASTATIN 20 MG TAB PO SCH (21:56)
[2022-01-02 05:00] VITALS: BP 124/73
[2022-01-02] MEDS: ACCU-CHEK COMFORT CURVE STRIP VI SCH ×4 (06:18→23:32)
[2022-01-02] MEDS: GABAPENTIN 300 MG CAP PO SCH ×3 (06:18→23:26)
[2022-01-02 08:00] VITALS: BP_SYST 114; BP_SYST 135; BP_DIAS 54; BP_DIAS 62
[2022-01-02] MEDS: CHOLECALCIFEROL (VITD3) 2,000 UNIT CAP/TAB PO SCH (09:33)
[2022-01-02] MEDS: DULoxetine HCL 30 MG CAP PO SCH (09:33)
[2022-01-02] MEDS: methIMAzole 5 MG TAB PO SCH (09:33)
[2022-01-02] MEDS: ASPirin 81 mg TAB PO SCH (09:33)
[2022-01-02] MEDS: PANTOPRAZOLE 40 MG TAB PO SCH (09:33)
[2022-01-02] MEDS: BENAZEPRIL HCL 10 MG TAB PO SCH (09:34)
[2022-01-02 12:00] VITALS: BP 109/63
[2022-01-02 16:33] VITALS: BP 129/70
[2022-01-02] MEDS: TAMSULOSIN HYDROCHLORIDE 0.4 MG CAP PO SCH (18:20)
[2022-01-02 20:00] VITALS: BP_SYST 100; BP_SYST 115; BP_DIAS 39; BP_DIAS 54
[2022-01-02 21:38] VITALS: BP 100/45
[2022-01-02] MEDS: ATORVASTATIN 20 MG TAB PO SCH (23:26)
[2022-01-03 04:40] VITALS: BP 112/55
[2022-01-03] MEDS: GABAPENTIN 300 MG CAP PO SCH ×3 (06:54→22:21)
[2022-01-03] MEDS: ACCU-CHEK COMFORT CURVE STRIP VI SCH ×4 (07:00→22:24)
[2022-01-03 08:31] VITALS: BP 126/62
[2022-01-03] MEDS: PANTOPRAZOLE 40 MG TAB PO SCH (10:28)
[2022-01-03] MEDS: methIMAzole 5 MG TAB PO SCH (10:29)
[2022-01-03] MEDS: ASPirin 81 mg TAB PO SCH (10:29)
[2022-01-03] MEDS: CHOLECALCIFEROL (VITD3) 2,000 UNIT CAP/TAB PO SCH (10:29)
[2022-01-03] MEDS: DULoxetine HCL 30 MG CAP PO SCH (10:29)
[2022-01-03] MEDS: BENAZEPRIL HCL 10 MG TAB PO SCH (10:29)
[2022-01-03 12:37] VITALS: BP 114/61
[2022-01-03 16:48] VITALS: BP 120/62
[2022-01-03] MEDS: TAMSULOSIN HYDROCHLORIDE 0.4 MG CAP PO SCH (18:56)
[2022-01-03 20:00] VITALS: BP 115/54
[2022-01-03 22:00] VITALS: BP 115/54
[2022-01-03] MEDS: ATORVASTATIN 20 MG TAB PO SCH (22:22)
[2022-01-04 05:00] VITALS: BP 113/62
[2022-01-04] MEDS: GABAPENTIN 300 MG CAP PO SCH ×3 (06:13→21:27)
[2022-01-04] MEDS: ACCU-CHEK COMFORT CURVE STRIP VI SCH ×4 (06:14→21:27)
[2022-01-04 09:00] VITALS: BP 111/64
[2022-01-04] MEDS: PANTOPRAZOLE 40 MG TAB PO SCH (09:15)
[2022-01-04] MEDS: ASPirin 81 mg TAB PO SCH (09:15)
[2022-01-04] MEDS: CHOLECALCIFEROL (VITD3) 2,000 UNIT CAP/TAB PO SCH (09:15)
[2022-01-04] MEDS: DULoxetine HCL 30 MG CAP PO SCH (09:15)
[2022-01-04] MEDS: methIMAzole 5 MG TAB PO SCH (09:15)
[2022-01-04] MEDS: BENAZEPRIL HCL 10 MG TAB PO SCH (09:24)
[2022-01-04 12:57] VITALS: BP 104/71
[2022-01-04 17:00] VITALS: BP 114/71
[2022-01-04] MEDS: TAMSULOSIN HYDROCHLORIDE 0.4 MG CAP PO SCH (18:22)
[2022-01-04] MEDS: ATORVASTATIN 20 MG TAB PO SCH (21:27)
[2022-01-04 22:00] VITALS: BP 91/40
[2022-01-05 05:35] VITALS: BP 123/72
[2022-01-05] MEDS: GABAPENTIN 300 MG CAP PO SCH (06:04)
[2022-01-05] MEDS: ACCU-CHEK COMFORT CURVE STRIP VI SCH ×4 (06:04→22:00)
[2022-01-05 09:00] VITALS: BP 127/68
[2022-01-05] MEDS: DULoxetine HCL 30 MG CAP PO SCH (10:21)
[2022-01-05] MEDS: PANTOPRAZOLE 40 MG TAB PO SCH (10:21)
[2022-01-05] MEDS: ASPirin 81 mg TAB PO SCH (10:21)
[2022-01-05] MEDS: methIMAzole 5 MG TAB PO SCH (10:21)
[2022-01-05] MEDS: BENAZEPRIL HCL 10 MG TAB PO SCH (10:21)
[2022-01-05] MEDS: CHOLECALCIFEROL (VITD3) 2,000 UNIT CAP/TAB PO SCH (10:21)
[2022-01-05 13:00] VITALS: BP 112/58
[2022-01-05 17:00] VITALS: BP 110/70
[2022-01-05] MEDS ORDERED: DEXTROSE (50%) 50ML SYRG IV PRN (17:00)
[2022-01-05] MEDS: InsuLIN REG 1unit/0.01ml Soln (100units/ml) SC SCH ×2 (17:46→22:36)
[2022-01-05 22:00] VITALS: BP 114/60
[2022-01-06 05:00] VITALS: BP 113/68
[2022-01-06] MEDS: InsuLIN REG 1unit/0.01ml Soln (100units/ml) SC SCH ×4 (06:24→21:47)
[2022-01-06] MEDS: ACCU-CHEK COMFORT CURVE STRIP VI SCH ×4 (06:24→21:45)
[2022-01-06 09:08] VITALS: BP 99/52
[2022-01-06] MEDS: BENAZEPRIL HCL 10 MG TAB PO SCH (10:00)
[2022-01-06] MEDS: DULoxetine HCL 30 MG CAP PO SCH (10:11)
[2022-01-06] MEDS: methIMAzole 5 MG TAB PO SCH (10:11)
[2022-01-06] MEDS: PANTOPRAZOLE 40 MG TAB PO SCH (10:12)
[2022-01-06 12:56] VITALS: BP 117/61
[2022-01-06 16:55] VITALS: BP 111/66
[2022-01-06 22:00] VITALS: BP 100/58
[2022-01-07 05:00] VITALS: BP 109/69
[2022-01-07] MEDS: ACCU-CHEK COMFORT CURVE STRIP VI SCH ×4 (06:31→22:09)
[2022-01-07] MEDS: InsuLIN REG 1unit/0.01ml Soln (100units/ml) SC SCH ×4 (06:36→22:14)
[2022-01-07 09:17] VITALS: BP 112/65
[2022-01-07] MEDS: DULoxetine HCL 30 MG CAP PO SCH (09:31)
[2022-01-07] MEDS: BENAZEPRIL HCL 10 MG TAB PO SCH (09:32)
[2022-01-07] MEDS: methIMAzole 5 MG TAB PO SCH (09:32)
[2022-01-07] MEDS: PANTOPRAZOLE 40 MG TAB PO SCH (09:32)
[2022-01-07 13:54] VITALS: BP 112/63
[2022-01-07 17:00] VITALS: BP 98/57
[2022-01-07 21:00] VITALS: BP 105/58
[2022-01-07 22:00] VITALS: BP 105/58
[2022-01-08 05:01] VITALS: BP 105/66
[2022-01-08] MEDS: InsuLIN REG 1unit/0.01ml Soln (100units/ml) SC SCH ×4 (07:00→21:11)
[2022-01-08] MEDS: ACCU-CHEK COMFORT CURVE STRIP VI SCH ×4 (07:10→21:12)
[2022-01-08 08:58] VITALS: BP 130/74
[2022-01-08 09:00] VITALS: BP 119/64
[2022-01-08] MEDS: DULoxetine HCL 30 MG CAP PO SCH (10:10)
[2022-01-08] MEDS: methIMAzole 5 MG TAB PO SCH (10:10)
[2022-01-08] MEDS: BENAZEPRIL HCL 10 MG TAB PO SCH (10:12)
[2022-01-08] MEDS: PANTOPRAZOLE 40 MG TAB PO SCH (10:12)
[2022-01-08 17:10] VITALS: BP 99/67
[2022-01-08 19:00] VITALS: BP 106/50
[2022-01-09 04:37] VITALS: BP 112/61
[2022-01-09] MEDS: InsuLIN REG 1unit/0.01ml Soln (100units/ml) SC SCH ×4 (06:23→21:45)
[2022-01-09] MEDS: ACCU-CHEK COMFORT CURVE STRIP VI SCH ×4 (06:24→21:39)
[2022-01-09 09:00] VITALS: BP 110/64
[2022-01-09] MEDS: DULoxetine HCL 30 MG CAP PO SCH (10:35)
[2022-01-09] MEDS: methIMAzole 5 MG TAB PO SCH (10:35)
[2022-01-09] MEDS: PANTOPRAZOLE 40 MG TAB PO SCH (10:35)
[2022-01-09] MEDS: BENAZEPRIL HCL 10 MG TAB PO SCH (10:36)
[2022-01-09 13:00] VITALS: BP 105/59
[2022-01-09 17:00] VITALS: BP 118/64
[2022-01-09 22:00] VITALS: BP 111/63
[2022-01-10 05:00] VITALS: BP 118/63
[2022-01-10] MEDS: ACCU-CHEK COMFORT CURVE STRIP VI SCH ×4 (06:17→22:07)
[2022-01-10] MEDS: InsuLIN REG 1unit/0.01ml Soln (100units/ml) SC SCH ×4 (06:18→22:05)
[2022-01-10 08:32] VITALS: BP 117/74
[2022-01-10 09:00] VITALS: BP 156/100
[2022-01-10] MEDS: DULoxetine HCL 30 MG CAP PO SCH (10:58)
[2022-01-10] MEDS: methIMAzole 5 MG TAB PO SCH (10:58)
[2022-01-10] MEDS: PANTOPRAZOLE 40 MG TAB PO SCH (10:58)
[2022-01-10] MEDS: BENAZEPRIL HCL 10 MG TAB PO SCH (11:00)
[2022-01-10 13:00] VITALS: BP 113/73
[2022-01-10 16:55] VITALS: BP 110/71
[2022-01-10 21:57] VITALS: BP 99/56
[2022-01-11 04:56] VITALS: BP 111/62
[2022-01-11] MEDS: InsuLIN REG 1unit/0.01ml Soln (100units/ml) SC SCH ×4 (06:51→22:10)
[2022-01-11] MEDS: ACCU-CHEK COMFORT CURVE STRIP VI SCH ×4 (06:52→22:06)
[2022-01-11 09:00] VITALS: BP 111/69
[2022-01-11] MEDS: DULoxetine HCL 30 MG CAP PO SCH (10:23)
[2022-01-11] MEDS: methIMAzole 5 MG TAB PO SCH (10:23)
[2022-01-11] MEDS: BENAZEPRIL HCL 10 MG TAB PO SCH (10:23)
[2022-01-11] MEDS: PANTOPRAZOLE 40 MG TAB PO SCH (10:23)
[2022-01-11 13:00] VITALS: BP 101/70
[2022-01-11 16:49] VITALS: BP 112/72
[2022-01-11 21:45] VITALS: BP 98/62
[2022-01-12 05:19] VITALS: BP 120/60
[2022-01-12] MEDS: ACCU-CHEK COMFORT CURVE STRIP VI SCH ×4 (06:46→22:00)
[2022-01-12] MEDS: InsuLIN REG 1unit/0.01ml Soln (100units/ml) SC SCH ×4 (06:47→22:47)
[2022-01-12 09:00] VITALS: BP 109/51
[2022-01-12] MEDS: DULoxetine HCL 30 MG CAP PO SCH (10:05)
[2022-01-12] MEDS: PANTOPRAZOLE 40 MG TAB PO SCH (10:05)
[2022-01-12] MEDS: methIMAzole 5 MG TAB PO SCH (10:05)
[2022-01-12] MEDS: BENAZEPRIL HCL 10 MG TAB PO SCH (10:06)
[2022-01-12 13:00] VITALS: BP 81/47
[2022-01-12 17:00] VITALS: BP 95/70
[2022-01-12 22:00] VITALS: BP 97/61
[2022-01-13 04:57] VITALS: BP 114/50
[2022-01-13] MEDS: ACCU-CHEK COMFORT CURVE STRIP VI SCH ×4 (07:02→22:00)
[2022-01-13] MEDS: InsuLIN REG 1unit/0.01ml Soln (100units/ml) SC SCH ×4 (07:02→22:25)
[2022-01-13 09:00] VITALS: BP 111/67
[2022-01-13] MEDS: BENAZEPRIL HCL 10 MG TAB PO SCH (09:14)
[2022-01-13] MEDS: PANTOPRAZOLE 40 MG TAB PO SCH (09:14)
[2022-01-13] MEDS: DULoxetine HCL 30 MG CAP PO SCH (09:14)
[2022-01-13] MEDS: methIMAzole 5 MG TAB PO SCH (09:14)
[2022-01-13 12:51] VITALS: BP 107/71
[2022-01-13 17:00] VITALS: BP 115/66
[2022-01-13 17:13] VITALS: BP 122/71
[2022-01-13 22:11] VITALS: BP 93/59
[2022-01-14] MEDS: ACCU-CHEK COMFORT CURVE STRIP VI SCH ×4 (06:25→21:35)
[2022-01-14] MEDS: InsuLIN REG 1unit/0.01ml Soln (100units/ml) SC SCH ×5 (06:28→21:47)
[2022-01-14] MEDS: PANTOPRAZOLE 40 MG TAB PO SCH (08:53)
[2022-01-14] MEDS: DULoxetine HCL 30 MG CAP PO SCH (08:53)
[2022-01-14] MEDS: BENAZEPRIL HCL 10 MG TAB PO SCH (08:54)
[2022-01-14] MEDS: methIMAzole 5 MG TAB PO SCH (08:54)
[2022-01-14 09:00] VITALS: BP 108/73
[2022-01-14 12:54] VITALS: BP 110/76
[2022-01-14 16:44] VITALS: BP 113/75
[2022-01-14 20:00] VITALS: BP 111/60
[2022-01-14 22:00] VITALS: BP 111/60
[2022-01-15] VITALS (7 sets, daily range): BP systolic 107–141; BP diastolic 52–78
[2022-01-15] MEDS: ACCU-CHEK COMFORT CURVE STRIP VI SCH ×4 (06:40→22:08)
[2022-01-15] MEDS: InsuLIN REG 1unit/0.01ml Soln (100units/ml) SC SCH ×4 (06:43→22:13)
[2022-01-15] MEDS: DULoxetine HCL 30 MG CAP PO SCH (11:20)
[2022-01-15] MEDS: BENAZEPRIL HCL 10 MG TAB PO SCH (11:21)
[2022-01-15] MEDS: PANTOPRAZOLE 40 MG TAB PO SCH (11:21)
[2022-01-15] MEDS: methIMAzole 5 MG TAB PO SCH (11:22)
[2022-01-16 05:00] VITALS: BP 112/58
[2022-01-16] MEDS: ACCU-CHEK COMFORT CURVE STRIP VI SCH ×4 (06:27→21:17)
[2022-01-16] MEDS: InsuLIN REG 1unit/0.01ml Soln (100units/ml) SC SCH ×4 (06:29→21:25)
[2022-01-16 08:15] VITALS: BP 109/68
[2022-01-16 09:30] VITALS: BP 109/68
[2022-01-16] MEDS: DULoxetine HCL 30 MG CAP PO SCH (10:22)
[2022-01-16] MEDS: BENAZEPRIL HCL 10 MG TAB PO SCH (10:24)
[2022-01-16] MEDS: PANTOPRAZOLE 40 MG TAB PO SCH (10:24)
[2022-01-16] MEDS: methIMAzole 5 MG TAB PO SCH (10:24)
[2022-01-16 13:00] VITALS: BP 108/73
[2022-01-16 21:52] VITALS: BP 104/67
[2022-01-17 05:00] VITALS: BP 107/71
[2022-01-17] MEDS: ACCU-CHEK COMFORT CURVE STRIP VI SCH ×4 (06:22→22:14)
[2022-01-17] MEDS: InsuLIN REG 1unit/0.01ml Soln (100units/ml) SC SCH ×4 (06:24→22:15)
[2022-01-17] MEDS: PANTOPRAZOLE 40 MG TAB PO SCH (11:32)
[2022-01-17] MEDS: BENAZEPRIL HCL 10 MG TAB PO SCH (11:32)
[2022-01-17] MEDS: methIMAzole 5 MG TAB PO SCH (11:33)
[2022-01-17] MEDS: DULoxetine HCL 30 MG CAP PO SCH (11:33)
[2022-01-17 22:00] VITALS: BP 117/67
[2022-01-18 05:00] VITALS: BP 110/67
[2022-01-18] MEDS: ACCU-CHEK COMFORT CURVE STRIP VI SCH ×4 (06:12→21:56)
[2022-01-18] MEDS: InsuLIN REG 1unit/0.01ml Soln (100units/ml) SC SCH ×4 (06:13→21:58)
[2022-01-18 09:30] VITALS: BP 120/76
[2022-01-18] MEDS: PANTOPRAZOLE 40 MG TAB PO SCH (09:56)
[2022-01-18] MEDS: BENAZEPRIL HCL 10 MG TAB PO SCH (09:56)
[2022-01-18] MEDS: methIMAzole 5 MG TAB PO SCH (09:57)
[2022-01-18] MEDS: DULoxetine HCL 30 MG CAP PO SCH (09:57)
[2022-01-18 22:34] VITALS: BP 115/53
[2022-01-19 05:26] VITALS: BP 113/59
[2022-01-19] MEDS: InsuLIN REG 1unit/0.01ml Soln (100units/ml) SC SCH ×4 (06:00→22:11)
[2022-01-19] MEDS: ACCU-CHEK COMFORT CURVE STRIP VI SCH ×4 (06:00→22:05)
[2022-01-19 08:54] VITALS: BP 122/66
[2022-01-19] MEDS: BENAZEPRIL HCL 10 MG TAB PO SCH (10:00)
[2022-01-19] MEDS: DULoxetine HCL 30 MG CAP PO SCH (10:00)
[2022-01-19] MEDS: PANTOPRAZOLE 40 MG TAB PO SCH (10:00)
[2022-01-19] MEDS: methIMAzole 5 MG TAB PO SCH (10:00)
[2022-01-19 13:00] VITALS: BP 117/62
[2022-01-19 22:00] VITALS: BP 107/50
[2022-01-20 05:00] VITALS: BP 108/55
[2022-01-20] MEDS: ACCU-CHEK COMFORT CURVE STRIP VI SCH ×4 (06:40→22:31)
[2022-01-20] MEDS: InsuLIN REG 1unit/0.01ml Soln (100units/ml) SC SCH ×4 (06:42→22:42)
[2022-01-20 09:05] VITALS: BP 119/79
[2022-01-20] MEDS: DULoxetine HCL 30 MG CAP PO SCH (10:26)
[2022-01-20] MEDS: PANTOPRAZOLE 40 MG TAB PO SCH (10:28)
[2022-01-20] MEDS: BENAZEPRIL HCL 10 MG TAB PO SCH (10:28)
[2022-01-20] MEDS: methIMAzole 5 MG TAB PO SCH (10:28)
[2022-01-20 13:00] VITALS: BP 90/54
[2022-01-20 17:13] VITALS: BP 98/64
[2022-01-20 22:00] VITALS: BP 102/64
[2022-01-21 05:04] VITALS: BP 98/60
[2022-01-21] MEDS: ACCU-CHEK COMFORT CURVE STRIP VI SCH ×4 (06:31→22:08)
[2022-01-21] MEDS: InsuLIN REG 1unit/0.01ml Soln (100units/ml) SC SCH ×4 (06:32→22:09)
[2022-01-21 09:07] VITALS: BP 106/66
[2022-01-21] MEDS: DULoxetine HCL 30 MG CAP PO SCH (10:07)
[2022-01-21] MEDS: PANTOPRAZOLE 40 MG TAB PO SCH (10:07)
[2022-01-21 13:00] VITALS: BP 105/71
[2022-01-21 17:00] VITALS: BP 108/75
[2022-01-21 21:23] VITALS: BP 103/69
[2022-01-22 05:05] VITALS: BP 106/70
[2022-01-22] MEDS: ACCU-CHEK COMFORT CURVE STRIP VI SCH ×4 (06:38→21:49)
[2022-01-22] MEDS: InsuLIN REG 1unit/0.01ml Soln (100units/ml) SC SCH ×4 (06:39→22:11)
[2022-01-22 09:00] VITALS: BP 108/69
[2022-01-22] MEDS: PANTOPRAZOLE 40 MG TAB PO SCH (10:17)
[2022-01-22] MEDS: DULoxetine HCL 30 MG CAP PO SCH (10:17)
[2022-01-22 13:00] VITALS: BP 127/79
[2022-01-22 21:49] VITALS: BP 117/80
[2022-01-23 05:06] VITALS: BP 105/62
[2022-01-23] MEDS: InsuLIN REG 1unit/0.01ml Soln (100units/ml) SC SCH ×4 (06:43→21:43)
[2022-01-23] MEDS: ACCU-CHEK COMFORT CURVE STRIP VI SCH ×4 (06:43→21:43)
[2022-01-23 08:00] VITALS: BP 111/66
[2022-01-23] MEDS: DULoxetine HCL 30 MG CAP PO SCH (10:16)
[2022-01-23] MEDS: PANTOPRAZOLE 40 MG TAB PO SCH (10:16)
[2022-01-23 12:30] VITALS: BP 121/70
[2022-01-23 16:36] VITALS: BP 130/71
[2022-01-23 22:00] VITALS: BP 103/70
[2022-01-24 05:00] VITALS: BP 104/67
[2022-01-24] MEDS: InsuLIN REG 1unit/0.01ml Soln (100units/ml) SC SCH ×4 (05:33→21:41)
[2022-01-24] MEDS: ACCU-CHEK COMFORT CURVE STRIP VI SCH ×4 (05:33→21:37)
[2022-01-24] MEDS: PANTOPRAZOLE 40 MG TAB PO SCH (08:33)
[2022-01-24 09:09] VITALS: BP 99/68
[2022-01-24 17:00] VITALS: BP 107/67
[2022-01-24 21:46] VITALS: BP 130/69
[2022-01-25 04:49] VITALS: BP 118/70
[2022-01-25] MEDS: ACCU-CHEK COMFORT CURVE STRIP VI SCH ×4 (05:38→22:00)
[2022-01-25] MEDS: InsuLIN REG 1unit/0.01ml Soln (100units/ml) SC SCH ×4 (05:52→22:49)
[2022-01-25 08:48] VITALS: BP 127/70
[2022-01-25] MEDS: PANTOPRAZOLE 40 MG TAB PO SCH (09:28)
[2022-01-25 12:45] VITALS: BP 114/72
[2022-01-25 16:31] VITALS: BP 113/72
[2022-01-25 20:10] VITALS: BP 114/78
[2022-01-25 21:40] VITALS: BP 114/78
[2022-01-26 05:14] VITALS: BP 110/68
[2022-01-26] MEDS: ACCU-CHEK COMFORT CURVE STRIP VI SCH ×4 (07:00→23:10)
[2022-01-26] MEDS: InsuLIN REG 1unit/0.01ml Soln (100units/ml) SC SCH ×4 (07:34→23:09)
[2022-01-26 09:00] VITALS: BP 120/77
[2022-01-26] MEDS: PANTOPRAZOLE 40 MG TAB PO SCH (10:30)
[2022-01-26 13:00] VITALS: BP 127/74
[2022-01-26] MEDS ORDERED: DULoxetine HCL 30 MG CAP PO ONE (13:00)
[2022-01-26 17:00] VITALS: BP 118/73
[2022-01-26 20:00] VITALS: BP 125/80
[2022-01-27 05:01] VITALS: BP 117/61
[2022-01-27] MEDS: ACCU-CHEK COMFORT CURVE STRIP VI SCH ×4 (06:41→22:04)
[2022-01-27] MEDS: InsuLIN REG 1unit/0.01ml Soln (100units/ml) SC SCH ×4 (06:52→22:11)
[2022-01-27 08:30] VITALS: BP 116/72
[2022-01-27] MEDS: DULoxetine HCL 30 MG CAP PO SCH (10:08)
[2022-01-27 12:40] VITALS: BP 116/69
[2022-01-27 16:58] VITALS: BP 116/68
[2022-01-27 20:00] VITALS: BP_SYST 126
[2022-01-27 22:00] VITALS: BP 115/73
[2022-01-28 05:00] VITALS: BP 105/67
[2022-01-28] MEDS: InsuLIN REG 1unit/0.01ml Soln (100units/ml) SC SCH ×3 (06:49→23:08)
[2022-01-28] MEDS: ACCU-CHEK COMFORT CURVE STRIP VI SCH ×4 (06:49→22:44)
[2022-01-28 08:49] VITALS: BP 113/64
[2022-01-28] MEDS: DULoxetine HCL 30 MG CAP PO SCH (09:32)
[2022-01-28 13:00] VITALS: BP 110/69
[2022-01-28 16:56] VITALS: BP 109/76
[2022-01-28 21:43] VITALS: BP 142/61
[2022-01-29 04:49] VITALS: BP 100/68
[2022-01-29] MEDS: ACCU-CHEK COMFORT CURVE STRIP VI SCH ×4 (06:41→22:02)
[2022-01-29] MEDS: InsuLIN REG 1unit/0.01ml Soln (100units/ml) SC SCH ×5 (07:06→22:07)
[2022-01-29 09:00] VITALS: BP 126/64
[2022-01-29] MEDS: DULoxetine HCL 30 MG CAP PO SCH (10:34)
[2022-01-29 13:00] VITALS: BP 115/69
[2022-01-29 17:00] VITALS: BP 135/76
[2022-01-29 21:53] VITALS: BP 118/72
[2022-01-30 04:46] VITALS: BP 114/74
[2022-01-30] MEDS: ACCU-CHEK COMFORT CURVE STRIP VI SCH ×4 (05:57→22:19)
[2022-01-30] MEDS: InsuLIN REG 1unit/0.01ml Soln (100units/ml) SC SCH ×4 (06:03→22:20)
[2022-01-30 09:00] VITALS: BP 110/72
[2022-01-30] MEDS: DULoxetine HCL 30 MG CAP PO SCH (09:37)
[2022-01-30] MEDS ORDERED: INSU1INJ19 SC (09:41)
[2022-01-30 13:00] VITALS: BP 128/82
[2022-01-30 17:00] VITALS: BP 125/76
[2022-01-30 22:00] VITALS: BP 106/76
[2022-01-31 05:00] VITALS: BP 105/66
[2022-01-31] MEDS: ACCU-CHEK COMFORT CURVE STRIP VI SCH ×4 (06:29→22:18)
[2022-01-31] MEDS: InsuLIN REG 1unit/0.01ml Soln (100units/ml) SC SCH ×4 (06:30→22:19)
[2022-01-31 09:09] VITALS: BP 110/75
[2022-01-31] MEDS: DULoxetine HCL 30 MG CAP PO SCH (11:00)
[2022-01-31 17:00] VITALS: BP 157/82
[2022-01-31 21:41] VITALS: BP 116/64
[2022-02-01 04:57] VITALS: BP 113/72
[2022-02-01] MEDS: ACCU-CHEK COMFORT CURVE STRIP VI SCH ×3 (06:38→18:07)
[2022-02-01] MEDS: InsuLIN REG 1unit/0.01ml Soln (100units/ml) SC SCH ×3 (06:39→18:08)
[2022-02-01 09:00] VITALS: BP 117/77
[2022-02-01] MEDS: DULoxetine HCL 30 MG CAP PO SCH (10:00)
[2022-02-01 13:00] VITALS: BP 134/78
[2022-02-01 17:00] VITALS: BP 127/69
[2022-02-01 21:15] VITALS: BP 111/72
[2022-02-02 05:17] VITALS: BP 137/65
[2022-02-02] MEDS ORDERED: fentaNYL CITRATE 100 MCG/2 ML VL ONE (07:28)
[2022-02-02] MEDS ORDERED: MIDAZOLAM HCL 2MG/2ML 2ml VIAL (1mg/ml) ONE (07:28)
[2022-02-02] MEDS ORDERED: MORPHINE SULF PF 5 MG/10 ML VIAL ONE (07:28)
[2022-02-02] MEDS ORDERED: oxyTOCIN 10 UNIT/ML 10ML VIAL ONE (07:33)
[2022-02-02 09:00] VITALS: BP 124/73
[2022-02-02] MEDS: DULoxetine HCL 30 MG CAP PO SCH (09:44)
[2022-02-02] MEDS ORDERED: DEXTROSE (50%) 50ML SYRG IV PRN (10:45)
[2022-02-02] MEDS: ACCU-CHEK COMFORT CURVE STRIP VI SCH ×3 (12:34→22:52)
[2022-02-02] MEDS: InsuLIN REG 1unit/0.01ml Soln (100units/ml) SC SCH ×3 (12:35→23:03)
[2022-02-02 22:17] VITALS: BP 122/76
[2022-02-03 05:00] VITALS: BP 103/62
[2022-02-03] MEDS: InsuLIN REG 1unit/0.01ml Soln (100units/ml) SC SCH ×4 (06:07→23:05)
[2022-02-03] MEDS: ACCU-CHEK COMFORT CURVE STRIP VI SCH ×4 (06:07→22:33)
[2022-02-03 08:00] VITALS: BP 111/64
[2022-02-03 09:00] VITALS: BP 111/64
[2022-02-03] MEDS: DULoxetine HCL 30 MG CAP PO SCH (10:07)
[2022-02-03 13:00] VITALS: BP 115/65
[2022-02-03 16:56] VITALS: BP 108/72
[2022-02-03 22:00] VITALS: BP 118/91
[2022-02-04 05:00] VITALS: BP 104/68
[2022-02-04] MEDS: InsuLIN REG 1unit/0.01ml Soln (100units/ml) SC SCH ×4 (06:13→23:26)
[2022-02-04] MEDS: ACCU-CHEK COMFORT CURVE STRIP VI SCH ×4 (06:13→22:01)
[2022-02-04 08:00] VITALS: BP 142/89
[2022-02-04 09:00] VITALS: BP 142/89
[2022-02-04] MEDS: DULoxetine HCL 30 MG CAP PO SCH (09:30)
[2022-02-04 13:00] VITALS: BP 140/89
[2022-02-04 17:00] VITALS: BP 138/79
[2022-02-04 22:00] VITALS: BP 103/67
[2022-02-05 05:00] VITALS: BP 101/68
[2022-02-05] MEDS: ACCU-CHEK COMFORT CURVE STRIP VI SCH ×4 (06:39→21:24)
[2022-02-05] MEDS: InsuLIN REG 1unit/0.01ml Soln (100units/ml) SC SCH ×4 (06:39→21:28)
[2022-02-05 08:00] VITALS: BP 119/79
[2022-02-05 09:00] VITALS: BP 119/79
[2022-02-05] MEDS: DULoxetine HCL 30 MG CAP PO SCH (09:48)
[2022-02-05 13:00] VITALS: BP 130/91
[2022-02-05 17:00] VITALS: BP 124/75
[2022-02-05 22:00] VITALS: BP 118/77
[2022-02-06 05:00] VITALS: BP 116/70
[2022-02-06 06:08] LABS: Basophils # (auto) 0.1 10 ^3/uL (0-0.2); Basophils % (auto) 0.6 % (0.0-2.0); Eosinophils # (auto) 0.1 10 ^3/uL (0-0.8); Eosinophils % (auto) 1.3 % (0.0-7.0); Hematocrit 41.1 % (41.0-53.0); Hemoglobin 13.9 g/dL (13.5-17.5); Lymphocytes # (auto) 2.4 10 ^3/uL (0.4-5.4); Lymphocytes % (auto) 25.7 % (10.0-50.0); Mean Corpuscular Hemoglobin 27.6 pg (28.0-32.0); Mean Corpuscular Hgb Conc. 33.7 g/dL (32.0-36.0); Mean Corpuscular Volume 81.9 fL (80.0-100.0); Monocytes # (auto) 0.5 10 ^3/uL (0-1.3); Monocytes % (auto) 5.8 % (0.0-12.0); Neutrophils # (auto) 6.3 10 ^3/uL (1.6-8.6); Neutrophils % (auto) 66.6 % (37.0-80.0); Nucleated Red Blood Cells % 0.1 %; Red Blood Cells 5.02 10^6/uL (4.5-5.90); Red Cell Distribution Width 14.6 % (11.8-14.3); White Blood Cell 9.5 10^3/uL (4.4-10.8)
[2022-02-06] MEDS: ACCU-CHEK COMFORT CURVE STRIP VI SCH ×4 (06:15→21:12)
[2022-02-06] MEDS: InsuLIN REG 1unit/0.01ml Soln (100units/ml) SC SCH ×4 (06:15→21:15)
[2022-02-06 06:28] LABS: BUN/Creatinine Ratio 17.8; Calcium 9.2 mg/dL (8.5-10.1); Potassium 3.8 mmol/L (3.5-5.1)
[2022-02-06] MEDS: DULoxetine HCL 30 MG CAP PO SCH (08:51)
[2022-02-06 09:00] VITALS: BP 103/63
[2022-02-06 13:00] VITALS: BP 109/67
[2022-02-06 17:00] VITALS: BP 115/72
[2022-02-06 22:00] VITALS: BP 94/67
[2022-02-07 05:00] VITALS: BP 122/66
[2022-02-07] MEDS: ACCU-CHEK COMFORT CURVE STRIP VI SCH ×4 (06:03→22:46)
[2022-02-07] MEDS: InsuLIN REG 1unit/0.01ml Soln (100units/ml) SC SCH ×4 (06:03→22:46)
[2022-02-07 08:00] VITALS: BP 107/64
[2022-02-07] MEDS: DULoxetine HCL 30 MG CAP PO SCH (09:57)
[2022-02-07 10:02] VITALS: BP 107/64
[2022-02-07] MEDS ORDERED: ZOLPIDEM TARTRATE 5 MG TAB PO PRN (11:15)
[2022-02-07 12:58] VITALS: BP 123/78
[2022-02-07 16:52] VITALS: BP 121/76
[2022-02-07 21:30] VITALS: BP 131/77
[2022-02-08] MEDS: ACCU-CHEK COMFORT CURVE STRIP VI SCH ×4 (06:40→21:47)
[2022-02-08] MEDS: InsuLIN REG 1unit/0.01ml Soln (100units/ml) SC SCH ×4 (06:40→21:53)
[2022-02-08 08:00] VITALS: BP 122/85
[2022-02-08 09:00] VITALS: BP 126/82
[2022-02-08] MEDS: DULoxetine HCL 30 MG CAP PO SCH (10:53)
[2022-02-08 13:00] VITALS: BP 121/88
[2022-02-08 16:00] VITALS: BP 122/81
[2022-02-08 21:03] VITALS: BP 120/85
[2022-02-09 04:21] VITALS: BP 114/75
[2022-02-09] MEDS: InsuLIN REG 1unit/0.01ml Soln (100units/ml) SC SCH ×4 (06:17→22:09)
[2022-02-09] MEDS: ACCU-CHEK COMFORT CURVE STRIP VI SCH ×4 (06:19→22:07)
[2022-02-09 08:42] VITALS: BP 124/72
[2022-02-09] MEDS: DULoxetine HCL 30 MG CAP PO SCH (09:11)
[2022-02-09 13:00] VITALS: BP 127/84
[2022-02-09 16:24] VITALS: BP 114/70
[2022-02-09 20:00] VITALS: BP 119/79
[2022-02-09 22:00] VITALS: BP 115/80
[2022-02-10 05:00] VITALS: BP 107/69
[2022-02-10] MEDS: ACCU-CHEK COMFORT CURVE STRIP VI SCH ×4 (06:04→22:00)
[2022-02-10] MEDS: InsuLIN REG 1unit/0.01ml Soln (100units/ml) SC SCH ×4 (06:24→21:53)
[2022-02-10 09:13] VITALS: BP 141/86
[2022-02-10] MEDS: DULoxetine HCL 30 MG CAP PO SCH (10:25)
[2022-02-10 13:26] VITALS: BP 135/95
[2022-02-10 17:35] VITALS: BP 130/81
[2022-02-10 20:00] VITALS: BP 119/79
[2022-02-10 22:00] VITALS: BP 138/78
[2022-02-11] VITALS (7 sets, daily range): BP systolic 120–152; BP diastolic 76–100
[2022-02-11] MEDS: ACCU-CHEK COMFORT CURVE STRIP VI SCH ×4 (06:37→22:22)
[2022-02-11] MEDS: InsuLIN REG 1unit/0.01ml Soln (100units/ml) SC SCH ×4 (06:40→22:37)
[2022-02-11] MEDS: DULoxetine HCL 30 MG CAP PO SCH (10:14)
[2022-02-12 05:00] VITALS: BP 135/75
[2022-02-12] MEDS: ACCU-CHEK COMFORT CURVE STRIP VI SCH ×4 (06:15→22:29)
[2022-02-12] MEDS: InsuLIN REG 1unit/0.01ml Soln (100units/ml) SC SCH ×4 (06:16→22:32)
[2022-02-12 08:12] VITALS: BP 127/73
[2022-02-12 09:00] VITALS: BP 127/73
[2022-02-12] MEDS: DULoxetine HCL 30 MG CAP PO SCH (10:20)
[2022-02-12 13:00] VITALS: BP 130/86
[2022-02-12 22:03] VITALS: BP 134/73
[2022-02-13 05:00] VITALS: BP 129/78
[2022-02-13] MEDS: ACCU-CHEK COMFORT CURVE STRIP VI SCH ×4 (06:27→22:10)
[2022-02-13] MEDS: InsuLIN REG 1unit/0.01ml Soln (100units/ml) SC SCH ×4 (06:27→22:14)
[2022-02-13 08:20] VITALS: BP 135/87
[2022-02-13 09:00] VITALS: BP 135/87
[2022-02-13] MEDS: DULoxetine HCL 30 MG CAP PO SCH (10:04)
[2022-02-13 13:36] VITALS: BP 133/71
[2022-02-13 16:24] VITALS: BP 128/74
[2022-02-13 22:13] VITALS: BP 125/79
[2022-02-14] VITALS (7 sets, daily range): BP systolic 115–140; BP diastolic 76–95
[2022-02-14] MEDS: ACCU-CHEK COMFORT CURVE STRIP VI SCH ×4 (06:47→21:34)
[2022-02-14] MEDS: InsuLIN REG 1unit/0.01ml Soln (100units/ml) SC SCH ×4 (06:49→21:38)
[2022-02-14] MEDS: DULoxetine HCL 30 MG CAP PO SCH (09:34)
[2022-02-15 05:09] VITALS: BP 131/77
[2022-02-15] MEDS: ACCU-CHEK COMFORT CURVE STRIP VI SCH ×4 (06:00→21:27)
[2022-02-15] MEDS: InsuLIN REG 1unit/0.01ml Soln (100units/ml) SC SCH ×4 (06:01→21:28)
[2022-02-15 08:00] VITALS: BP 127/70
[2022-02-15 09:00] VITALS: BP 127/70
[2022-02-15] MEDS: DULoxetine HCL 30 MG CAP PO SCH (10:30)
[2022-02-15 17:00] VITALS: BP 135/83
[2022-02-15 20:00] VITALS: BP 115/76
[2022-02-16 05:00] VITALS: BP 117/59
[2022-02-16] MEDS: ACCU-CHEK COMFORT CURVE STRIP VI SCH ×4 (06:19→22:32)
[2022-02-16] MEDS: InsuLIN REG 1unit/0.01ml Soln (100units/ml) SC SCH ×4 (06:19→22:34)
[2022-02-16 08:47] VITALS: BP 147/92
[2022-02-16 08:56] VITALS: BP 121/69
[2022-02-16] MEDS: DULoxetine HCL 30 MG CAP PO SCH (11:31)
[2022-02-16 13:30] VITALS: BP 132/83
[2022-02-16 17:45] VITALS: BP 115/69
[2022-02-17 04:58] VITALS: BP 122/78
[2022-02-17] MEDS: InsuLIN REG 1unit/0.01ml Soln (100units/ml) SC SCH ×4 (06:59→22:17)
[2022-02-17] MEDS: ACCU-CHEK COMFORT CURVE STRIP VI SCH ×4 (07:00→22:08)
[2022-02-17 09:00] VITALS: BP 128/76
[2022-02-17] MEDS: DULoxetine HCL 30 MG CAP PO SCH (09:38)
[2022-02-17 13:00] VITALS: BP 122/76
[2022-02-17 17:00] VITALS: BP 112/70
[2022-02-17 22:00] VITALS: BP 120/70
[2022-02-18 05:50] VITALS: BP 115/72
[2022-02-18] MEDS: ACCU-CHEK COMFORT CURVE STRIP VI SCH ×4 (05:51→21:59)
[2022-02-18] MEDS: InsuLIN REG 1unit/0.01ml Soln (100units/ml) SC SCH ×4 (06:02→22:11)
[2022-02-18 09:00] VITALS: BP 120/78
[2022-02-18] MEDS: DULoxetine HCL 30 MG CAP PO SCH (09:37)
[2022-02-18 13:00] VITALS: BP 128/66
[2022-02-18 16:54] VITALS: BP 147/83
[2022-02-18 21:35] VITALS: BP 132/70
[2022-02-19 04:39] VITALS: BP 107/77
[2022-02-19] MEDS: ACCU-CHEK COMFORT CURVE STRIP VI SCH ×4 (06:09→21:57)
[2022-02-19] MEDS: InsuLIN REG 1unit/0.01ml Soln (100units/ml) SC SCH ×4 (06:12→22:10)
[2022-02-19 09:48] VITALS: BP 122/74
[2022-02-19] MEDS: DULoxetine HCL 30 MG CAP PO SCH (09:53)
[2022-02-19 12:30] VITALS: BP 139/75
[2022-02-19 17:12] VITALS: BP 135/85
[2022-02-19 22:00] VITALS: BP 132/80
[2022-02-20 05:00] VITALS: BP 123/67
[2022-02-20] MEDS: ACCU-CHEK COMFORT CURVE STRIP VI SCH ×4 (06:30→21:39)
[2022-02-20] MEDS: InsuLIN REG 1unit/0.01ml Soln (100units/ml) SC SCH ×4 (06:31→21:40)
[2022-02-20 09:00] VITALS: BP 122/72
[2022-02-20] MEDS: DULoxetine HCL 30 MG CAP PO SCH (09:40)
[2022-02-20] MEDS: ACETAMINOPHEN 325 MG TAB PO PRN (09:44)
[2022-02-20 13:00] VITALS: BP 131/71
[2022-02-20 17:27] VITALS: BP 135/71
[2022-02-20 21:50] VITALS: BP 134/73
[2022-02-21 04:53] VITALS: BP 119/72
[2022-02-21] MEDS: ACCU-CHEK COMFORT CURVE STRIP VI SCH ×4 (06:12→22:30)
[2022-02-21] MEDS: InsuLIN REG 1unit/0.01ml Soln (100units/ml) SC SCH ×4 (06:16→22:34)
[2022-02-21 09:00] VITALS: BP 136/75
[2022-02-21] MEDS: DULoxetine HCL 30 MG CAP PO SCH ×2 (09:48→09:52)
[2022-02-21 13:00] VITALS: BP 139/91
[2022-02-21 16:35] VITALS: BP 141/83
[2022-02-21 19:30] VITALS: BP 131/73
[2022-02-22 05:00] VITALS: BP 120/68
[2022-02-22] MEDS: ACCU-CHEK COMFORT CURVE STRIP VI SCH ×4 (05:58→22:00)
[2022-02-22] MEDS: InsuLIN REG 1unit/0.01ml Soln (100units/ml) SC SCH ×4 (06:00→22:00)
[2022-02-22] MEDS ORDERED: hydrOXYzine 25 MG TAB or CAP PO PRN (08:15)
[2022-02-22] MEDS ORDERED: ZOLPIDEM TARTRATE 5 MG TAB PO PRN (08:15)
[2022-02-22] MEDS: FLUoxetine HCL 20 MG CAP PO SCH (08:39)
[2022-02-22] MEDS: ACETAMINOPHEN 325 MG TAB PO PRN (11:22)
[2022-02-22] MEDS: buPROPion HCL 75 MG TAB PO SCH (23:13)
[2022-02-23 05:00] VITALS: BP 125/81
[2022-02-23] MEDS: InsuLIN REG 1unit/0.01ml Soln (100units/ml) SC SCH ×2 (06:23→13:18)
[2022-02-23] MEDS: ACCU-CHEK COMFORT CURVE STRIP VI SCH ×2 (06:24→13:03)
[2022-02-23 08:45] VITALS: BP 134/79
[2022-02-23] MEDS: FLUoxetine HCL 20 MG CAP PO SCH (09:27)
[2022-02-23] MEDS: buPROPion HCL 75 MG TAB PO SCH (09:28)
[2022-02-23] MEDS ORDERED: BUPR150T8 PO (11:21)
[2022-02-23] MEDS ORDERED: HYDR25CA PO (11:21)
[2022-02-23] MEDS ORDERED: FLUO1TAB14 PO (11:21)
[2022-02-23 13:00] VITALS: BP 128/83
[2022-02-23 13:05] VITALS: BP 119/79
== END 2022-02-23 16:30 | disposition home or self-care (01) | DRG 817 ==
LOC: ER 13:24 → EDBD 13:24 → TELE 12-20 13:23 → OVERFLOW 12-20 14:32 → CENTRAL 12-21 08:17 → WEST WING 12-29 18:10
PROVIDERS: ADMIT Internal Medicine; ATTEND Internal Medicine Pulmonary Disease
DX: T38.3X2A Poisoning by insulin and oral hypoglycemic [antidiabetic] drugs, intentional self-harm, initial encounter (principal); J69.0 Pneumonitis due to inhalation of food and vomit; E11.649 Type 2 diabetes mellitus with hypoglycemia without coma; E66.2 Morbid (severe) obesity with alveolar hypoventilation; I27.9 Pulmonary heart disease, unspecified; I11.0 Hypertensive heart disease with heart failure; E05.90 Thyrotoxicosis, unspecified without thyrotoxic crisis or storm; E78.5 Hyperlipidemia, unspecified; F32.9 Major depressive disorder, single episode, unspecified; F41.9 Anxiety disorder, unspecified; I50.32 Chronic diastolic (congestive) heart failure; Z20.822 Contact with and (suspected) exposure to COVID-19; H40.9 Unspecified glaucoma; K21.9 Gastro-esophageal reflux disease without esophagitis; K29.70 Gastritis, unspecified, without bleeding; E11.42 Type 2 diabetes mellitus with diabetic polyneuropathy; N40.0 Benign prostatic hyperplasia without lower urinary tract symptoms; R45.851 Suicidal ideations; I25.10 Atherosclerotic heart disease of native coronary artery without angina pectoris; Z79.84 Long term (current) use of oral hypoglycemic drugs; Y92.89 Other specified places as the place of occurrence of the external cause; Z80.0 Family history of malignant neoplasm of digestive organs; Z82.49 Family history of ischemic heart disease and other diseases of the circulatory system; Z83.3 Family history of diabetes mellitus; Z68.42 Body mass index [BMI] 45.0-49.9, adult
CPT/HCPCS: 36415; 70450; 71045; 76536; 80048; 80053; 80061; 80307; 80329; 81001; 82024; 82270; 82533; 82550; 82728; 82962; 83036; 83525; 83615; 83690; 83735; 83880; 84100; 84156; 84439; 84443; 84484; 84550; 85025; 85379; 85610; 85652; 85730; 86141; 87040; 87077; 87086; 87186; 93005; 93970; 96365; 96375; 96376; 99291; G0378; J1815; J1956; J2250; J2590; J3490

== ENCOUNTER 2022-03-07 15:05 | Inpatient (IN) | payer MEDICAID ==
[~2022-03-07] VITALS: Ht 180.3 cm; Wt 122.6 kg
[~2022-03-07 15:05] MED LIST changes: +BUPR150T8 PO; +FLUO1TAB14 PO; +HYDR25CA PO; +INSU1INJ19 SC
[2022-03-07 16:00] LABS: Eosinophils # (auto) 0.2 10 ^3/uL (0-0.8); Monocytes # (auto) 0.4 10 ^3/uL (0-1.3); Monocytes % (auto) 4.6 % (0.0-12.0)
[2022-03-07 16:02] LABS: Basophils # (auto) 0 10 ^3/uL (0-0.2); Basophils % (auto) 0.3 % (0.0-2.0); Eosinophils % (auto) 2.4 % (0.0-7.0); Hematocrit 40.5 % (41.0-53.0); Hemoglobin 13.2 g/dL (13.5-17.5); Lymphocytes # (auto) 1.5 10 ^3/uL (0.4-5.4); Lymphocytes % (auto) 16.8 % (10.0-50.0); Mean Corpuscular Hemoglobin 26.7 pg (28.0-32.0); Mean Corpuscular Hgb Conc. 32.6 g/dL (32.0-36.0); Neutrophils % (auto) 75.9 % (37.0-80.0); Red Blood Cells 4.94 10^6/uL (4.5-5.90); Red Cell Distribution Width 15.2 % (11.8-14.3); White Blood Cell 9.2 10^3/uL (4.4-10.8)
[2022-03-07 16:13] LABS: Chloride 112 mmol/L (98-107); Potassium 3.3 mmol/L (3.5-5.1); Sodium 143 mmol/L (136-145)
[2022-03-07 16:14] LABS: Salicylate < 1.7 mg/dL (2.8-20.0)
[2022-03-07 16:20] LABS: Alanine Aminotransferase 23 U/L (16-61); Albumin 3.3 g/dL (3.4-5.0); Alkaline Phosphatase 145 U/L (45-117); Anion Gap 3 (5-15); Aspartate Aminotransferase 14 U/L (15-37); BUN/Creatinine Ratio 11.5; Bilirubin, Total 0.3 mg/dL (0.2-1.0); Blood Alcohol < 3.0 mg/dL (0-5); Blood Urea Nitrogen 12 mg/dL (7-18); Calcium 8.7 mg/dL (8.5-10.1); Carbon Dioxide 28 mmol/L (21-32); GFR African American 95 mL/min; GFR Non-African American 79 mL/min; Glucose 103 mg/dL (74-106); Total Protein 7.4 g/dL (6.4-8.2)
[2022-03-07 16:30] LABS: Acetaminophen < 2.0 ug/mL (10-30)
[2022-03-07] MEDS: DEXTROSE 10% 1,000 ML IV SCH ×2 (17:55→19:17)
[2022-03-07] MEDS: ACCU-CHEK COMFORT CURVE STRIP VI SCH ×4 (19:08→23:00)
[2022-03-07] MEDS ORDERED: DEXTROSE 50% SYRINGE 50 ML IV ONE (20:12)
[2022-03-07] MEDS ORDERED: DEXTROSE (50%) 50ML SYRG IV ONE (20:15)
[2022-03-07] MEDS ORDERED: NITROGLYCERIN 0.4 MG SL TAB SL PRN (20:45)
[2022-03-07] MEDS ORDERED: ONDANSETRON HCL 4 MG/2 ML VIAL IV PRN (20:45)
[2022-03-07] MEDS ORDERED: MORPHINE SULFATE INJ 2 MG/ml SYRG IV PRN (20:45)
[2022-03-07] MEDS ORDERED: POTASSIUM CHL 20 Meq TABLET PO ONE (20:45)
[2022-03-07] MEDS ORDERED: ATORVASTATIN 20 MG TAB PO SCH (22:00)
[2022-03-07] MEDS ORDERED: ACCU-CHEK COMFORT CURVE STRIP VI SCH (22:00)
[2022-03-07 22:08] LABS: BUN/Creatinine Ratio 15.4; Calcium 8.7 mg/dL (8.5-10.1); Potassium 3.7 mmol/L (3.5-5.1)
[2022-03-07] MEDS: DEXTROSE (50%) 50ML SYRG IV PRN (22:13)
[2022-03-07] MEDS: OCTREOTIDE ACETATE 100 MCG/ML VL SUBCUT PRN (23:18)
[2022-03-08] VITALS (20 sets, daily range): BP systolic 84–131; BP diastolic 40–80
[2022-03-08] MEDS: DEXTROSE (50%) 50ML SYRG IV PRN ×13 (00:14→23:21)
[2022-03-08] MEDS: ACCU-CHEK COMFORT CURVE STRIP VI SCH ×24 (01:05→23:21)
[2022-03-08] MEDS ORDERED: DEXTROSE 50% SYRINGE 50 ML IV ONE ×2 (04:00→05:57)
[2022-03-08 05:30] LABS: Basophils # (auto) 0 10 ^3/uL (0-0.2); Eosinophils # (auto) 0.2 10 ^3/uL (0-0.8); Lymphocytes # (auto) 2.1 10 ^3/uL (0.4-5.4); Monocytes # (auto) 0.6 10 ^3/uL (0-1.3); Neutrophils % (auto) 75.5 % (37.0-80.0)
[2022-03-08 05:35] LABS: Basophils % (auto) 0.3 % (0.0-2.0); Eosinophils % (auto) 1.6 % (0.0-7.0); Hematocrit 38.1 % (41.0-53.0); Hemoglobin 12.2 g/dL (13.5-17.5); Lymphocytes % (auto) 17.3 % (10.0-50.0); Mean Corpuscular Hemoglobin 26.4 pg (28.0-32.0); Mean Corpuscular Hgb Conc. 32.1 g/dL (32.0-36.0); Mean Corpuscular Volume 82.2 fL (80.0-100.0); Monocytes % (auto) 5.3 % (0.0-12.0); Nucleated Red Blood Cells % 0.1 %; Red Blood Cells 4.64 10^6/uL (4.5-5.90); Red Cell Distribution Width 14.7 % (11.8-14.3); White Blood Cell 11.9 10^3/uL (4.4-10.8)
[2022-03-08 05:43] LABS: Albumin 2.9 g/dL (3.4-5.0); BUN/Creatinine Ratio 15.2; Calcium 8.7 mg/dL (8.5-10.1)
[2022-03-08 05:49] LABS: Bilirubin, Total 0.4 mg/dL (0.2-1.0); Total Protein 6.1 g/dL (6.4-8.2)
[2022-03-08] MEDS: OCTREOTIDE ACETATE 100 MCG/ML VL SUBCUT PRN ×2 (07:42→19:06)
[2022-03-08] MEDS: LISINOPRIL 10 MG TAB PO SCH (10:00)
[2022-03-08] MEDS ORDERED: PANTOPRAZOLE 40 MG TAB PO SCH (10:00)
[2022-03-08] MEDS: DEXTROSE 10% 1,000 ML IV SCH ×3 (11:19→22:14)
[2022-03-08 12:28] LABS: Urine Bacteria NONE SEEN /hpf (None Seen); Urine Blood Negative /uL (Negative); Urine WBC <1 /hpf (0 - 3)
[2022-03-08 12:38] LABS: Alcohol, Urine < 3.0 mg/dL (0-10); Amphetamine Screen, Urine NEGATIVE (NEGATIVE); Barbiturate Scree,Urine NEGATIVE (NEGATIVE); Benzodiazephine Screen, Urine NEGATIVE (NEGATIVE); Cannabinoid Screen, Urine NEGATIVE (NEGATIVE); Cocaine Screen, Urine NEGATIVE (NEGATIVE); Opiate Scree,Urine NEGATIVE (NEGATIVE); Phencyclidine Screen, Urine NEGATIVE (NEGATIVE)
[2022-03-09] VITALS (13 sets, daily range): BP systolic 89–129; BP diastolic 42–85
[2022-03-09] MEDS: ACCU-CHEK COMFORT CURVE STRIP VI SCH ×12 (00:19→22:25)
[2022-03-09] MEDS: DEXTROSE (50%) 50ML SYRG IV PRN ×2 (01:26→06:40)
[2022-03-09] MEDS: DEXTROSE 10% 1,000 ML IV SCH ×2 (04:27→20:55)
[2022-03-09 05:11] LABS: Basophils # (auto) 0 10 ^3/uL (0-0.2); Eosinophils # (auto) 0.3 10 ^3/uL (0-0.8); Lymphocytes # (auto) 1.8 10 ^3/uL (0.4-5.4); Lymphocytes % (auto) 15.9 % (10.0-50.0)
[2022-03-09 05:14] LABS: Basophils % (auto) 0.2 % (0.0-2.0); Eosinophils % (auto) 2.8 % (0.0-7.0); Hematocrit 38.8 % (41.0-53.0); Hemoglobin 12.5 g/dL (13.5-17.5); Mean Corpuscular Hemoglobin 26.2 pg (28.0-32.0); Mean Corpuscular Hgb Conc. 32.2 g/dL (32.0-36.0); Mean Corpuscular Volume 81.4 fL (80.0-100.0); Monocytes # (auto) 0.7 10 ^3/uL (0-1.3); Monocytes % (auto) 6.6 % (0.0-12.0); Neutrophils # (auto) 8.4 10 ^3/uL (1.6-8.6); Neutrophils % (auto) 74.5 % (37.0-80.0); Nucleated Red Blood Cells % 0.1 %; Red Blood Cells 4.76 10^6/uL (4.5-5.90); White Blood Cell 11.3 10^3/uL (4.4-10.8)
[2022-03-09 07:21] LABS: BUN/Creatinine Ratio 4.2; Calcium 8.4 mg/dL (8.5-10.1)
[2022-03-09] MEDS: BUPROPION HCL 150 MG PO SCH (10:00)
[2022-03-09] MEDS ORDERED: ATORVASTATIN 20 MG TAB PO SCH (10:00)
[2022-03-09] MEDS: FLUoxetine HCL 20 MG CAP PO SCH (11:20)
[2022-03-09] MEDS: PANTOPRAZOLE 40 MG TAB PO SCH (11:21)
[2022-03-09] MEDS ORDERED: SERTRALINE HCL 50 MG TAB PO SCH (22:00)
[2022-03-09] MEDS: ATORVASTATIN 20 MG TAB PO SCH (22:27)
[2022-03-10] VITALS (12 sets, daily range): BP systolic 93–114; BP diastolic 50–67
[2022-03-10] MEDS: DEXTROSE 10% 1,000 ML IV SCH ×2 (03:15→16:45)
[2022-03-10 03:39] LABS: Hemoglobin 12.7 g/dL (13.5-17.5); Mean Corpuscular Hemoglobin 26.3 pg (28.0-32.0)
[2022-03-10 03:43] LABS: Basophils # (auto) 0.1 10 ^3/uL (0-0.2); Basophils % (auto) 0.6 % (0.0-2.0); Eosinophils # (auto) 0.4 10 ^3/uL (0-0.8); Eosinophils % (auto) 3.5 % (0.0-7.0); Hematocrit 39.6 % (41.0-53.0); Lymphocytes # (auto) 2.7 10 ^3/uL (0.4-5.4); Lymphocytes % (auto) 24.6 % (10.0-50.0); Mean Corpuscular Volume 82.3 fL (80.0-100.0); Monocytes # (auto) 0.9 10 ^3/uL (0-1.3); Monocytes % (auto) 8.2 % (0.0-12.0); Neutrophils # (auto) 6.9 10 ^3/uL (1.6-8.6); Neutrophils % (auto) 63.1 % (37.0-80.0); Red Blood Cells 4.81 10^6/uL (4.5-5.90); Red Cell Distribution Width 14.9 % (11.8-14.3)
[2022-03-10 03:51] LABS: BUN/Creatinine Ratio 6.5; Calcium 8.3 mg/dL (8.5-10.1); Potassium 3.7 mmol/L (3.5-5.1)
[2022-03-10] MEDS: ACCU-CHEK COMFORT CURVE STRIP VI SCH ×12 (07:00→23:55)
[2022-03-10] MEDS: FLUoxetine HCL 20 MG CAP PO SCH (09:55)
[2022-03-10] MEDS: LISINOPRIL 10 MG TAB PO SCH (09:55)
[2022-03-10] MEDS: PANTOPRAZOLE 40 MG TAB PO SCH (09:55)
[2022-03-10] MEDS ORDERED: DEXTROSE 10% 1,000 ML IV SCH (10:00)
[2022-03-10] MEDS: BUPROPION HCL 150 MG PO SCH (10:00)
[2022-03-10] MEDS: BETAMETHASONE DIPROP0.05% TOPICAL CREAM 15GM TOP SCH ×2 (12:30→22:48)
[2022-03-10] MEDS ORDERED: HYDROCORTISONE 2.5% TOPICAL CREAM 30GM TUBE TOP SCH (22:00)
[2022-03-10] MEDS: ATORVASTATIN 20 MG TAB PO SCH (22:45)
[2022-03-11] VITALS (7 sets, daily range): BP systolic 101–129; BP diastolic 49–73
[2022-03-11] MEDS: DEXTROSE 10% 1,000 ML IV SCH (01:03)
[2022-03-11] MEDS: ACCU-CHEK COMFORT CURVE STRIP VI SCH ×6 (04:00→23:59)
[2022-03-11 05:15] LABS: Basophils # (auto) 0.1 10 ^3/uL (0-0.2); Eosinophils # (auto) 0.4 10 ^3/uL (0-0.8); Eosinophils % (auto) 3.7 % (0.0-7.0); Hemoglobin 12.8 g/dL (13.5-17.5); Lymphocytes # (auto) 2.7 10 ^3/uL (0.4-5.4); Mean Corpuscular Hemoglobin 26.5 pg (28.0-32.0); Mean Corpuscular Hgb Conc. 32.6 g/dL (32.0-36.0); Neutrophils # (auto) 6.3 10 ^3/uL (1.6-8.6); White Blood Cell 10.1 10^3/uL (4.4-10.8)
[2022-03-11 05:17] LABS: Basophils % (auto) 0.6 % (0.0-2.0); Hematocrit 39.1 % (41.0-53.0); Lymphocytes % (auto) 26.3 % (10.0-50.0); Mean Corpuscular Volume 81.4 fL (80.0-100.0); Monocytes # (auto) 0.8 10 ^3/uL (0-1.3); Monocytes % (auto) 7.4 % (0.0-12.0); Red Blood Cells 4.81 10^6/uL (4.5-5.90)
[2022-03-11 05:30] LABS: BUN/Creatinine Ratio 11.4; Calcium 8.6 mg/dL (8.5-10.1); Potassium 4.1 mmol/L (3.5-5.1)
[2022-03-11] MEDS: BUPROPION HCL 150 MG PO SCH (10:00)
[2022-03-11] MEDS: PANTOPRAZOLE 40 MG TAB PO SCH (10:29)
[2022-03-11] MEDS: FLUoxetine HCL 20 MG CAP PO SCH (10:29)
[2022-03-11] MEDS: LISINOPRIL 10 MG TAB PO SCH (10:30)
[2022-03-11] MEDS: BETAMETHASONE DIPROP0.05% TOPICAL CREAM 15GM TOP SCH ×2 (10:30→22:00)
[2022-03-11] MEDS: ATORVASTATIN 20 MG TAB PO SCH (22:00)
[2022-03-12] VITALS (7 sets, daily range): BP systolic 94–129; BP diastolic 32–86
[2022-03-12] MEDS: ACETAMINOPHEN 325 MG TAB PO PRN (00:24)
[2022-03-12] MEDS: ACCU-CHEK COMFORT CURVE STRIP VI SCH ×5 (04:00→20:54)
[2022-03-12 04:48] LABS: Basophils # (auto) 0.1 10 ^3/uL (0-0.2); Basophils % (auto) 0.6 % (0.0-2.0); Eosinophils # (auto) 0.4 10 ^3/uL (0-0.8); Monocytes # (auto) 0.6 10 ^3/uL (0-1.3)
[2022-03-12 04:52] LABS: Eosinophils % (auto) 3.7 % (0.0-7.0); Hematocrit 38.5 % (41.0-53.0); Hemoglobin 12.5 g/dL (13.5-17.5); Lymphocytes # (auto) 2.6 10 ^3/uL (0.4-5.4); Lymphocytes % (auto) 25.6 % (10.0-50.0); Mean Corpuscular Hemoglobin 26.6 pg (28.0-32.0); Mean Corpuscular Hgb Conc. 32.6 g/dL (32.0-36.0); Mean Corpuscular Volume 81.5 fL (80.0-100.0); Monocytes % (auto) 6.1 % (0.0-12.0); Neutrophils # (auto) 6.6 10 ^3/uL (1.6-8.6); Nucleated Red Blood Cells % 0.1 %; Red Blood Cells 4.72 10^6/uL (4.5-5.90); Red Cell Distribution Width 15.1 % (11.8-14.3); White Blood Cell 10.3 10^3/uL (4.4-10.8)
[2022-03-12 05:07] LABS: Calcium 8.8 mg/dL (8.5-10.1); Potassium 4.5 mmol/L (3.5-5.1)
[2022-03-12 05:09] LABS: BUN/Creatinine Ratio 14.4
[2022-03-12] MEDS: DEXTROSE 10% 1,000 ML IV SCH (08:45)
[2022-03-12] MEDS: PANTOPRAZOLE 40 MG TAB PO SCH (10:53)
[2022-03-12] MEDS: FLUoxetine HCL 20 MG CAP PO SCH (10:53)
[2022-03-12] MEDS: BETAMETHASONE DIPROP0.05% TOPICAL CREAM 15GM TOP SCH ×2 (10:54→22:00)
[2022-03-12] MEDS: LISINOPRIL 10 MG TAB PO SCH (10:54)
[2022-03-12] MEDS: BUPROPION HCL 150 MG PO SCH (10:55)
[2022-03-12] MEDS: ATORVASTATIN 20 MG TAB PO SCH (22:30)
[2022-03-13] MEDS: ACCU-CHEK COMFORT CURVE STRIP VI SCH ×6 (01:02→20:47)
[2022-03-13 05:00] VITALS: BP 105/57
[2022-03-13 07:17] LABS: Eosinophils # (auto) 0.3 10 ^3/uL (0-0.8); Monocytes # (auto) 0.7 10 ^3/uL (0-1.3)
[2022-03-13 07:20] LABS: Basophils # (auto) 0.1 10 ^3/uL (0-0.2); Basophils % (auto) 0.5 % (0.0-2.0); Eosinophils % (auto) 2.2 % (0.0-7.0); Lymphocytes # (auto) 2.7 10 ^3/uL (0.4-5.4); Lymphocytes % (auto) 20.8 % (10.0-50.0); Mean Corpuscular Hemoglobin 26.3 pg (28.0-32.0); Mean Corpuscular Hgb Conc. 32.4 g/dL (32.0-36.0); Monocytes % (auto) 5.3 % (0.0-12.0); Neutrophils # (auto) 9.1 10 ^3/uL (1.6-8.6); Neutrophils % (auto) 71.2 % (37.0-80.0); Red Blood Cells 4.93 10^6/uL (4.5-5.90); Red Cell Distribution Width 14.9 % (11.8-14.3); White Blood Cell 12.8 10^3/uL (4.4-10.8)
[2022-03-13 07:28] LABS: BUN/Creatinine Ratio 20.3; Potassium 4.6 mmol/L (3.5-5.1)
[2022-03-13 09:00] VITALS: BP 122/63
[2022-03-13] MEDS: BUPROPION HCL 150 MG PO SCH (10:00)
[2022-03-13] MEDS: PANTOPRAZOLE 40 MG TAB PO SCH (10:02)
[2022-03-13] MEDS: FLUoxetine HCL 20 MG CAP PO SCH (10:03)
[2022-03-13] MEDS: LISINOPRIL 10 MG TAB PO SCH (10:03)
[2022-03-13] MEDS: BETAMETHASONE DIPROP0.05% TOPICAL CREAM 15GM TOP SCH ×2 (10:03→21:47)
[2022-03-13 13:00] VITALS: BP 113/61
[2022-03-13 17:00] VITALS: BP 107/56
[2022-03-13] MEDS: ATORVASTATIN 20 MG TAB PO SCH (21:46)
[2022-03-13 22:00] VITALS: BP 123/77
[2022-03-14] MEDS: ACCU-CHEK COMFORT CURVE STRIP VI SCH ×7 (04:00→23:52)
[2022-03-14 05:00] VITALS: BP 119/69
[2022-03-14 09:00] VITALS: BP 113/58
[2022-03-14] MEDS: PANTOPRAZOLE 40 MG TAB PO SCH (10:17)
[2022-03-14] MEDS: LISINOPRIL 10 MG TAB PO SCH (10:17)
[2022-03-14] MEDS: BUPROPION HCL 150 MG PO SCH (10:17)
[2022-03-14] MEDS: BETAMETHASONE DIPROP0.05% TOPICAL CREAM 15GM TOP SCH ×2 (10:17→21:41)
[2022-03-14] MEDS: FLUoxetine HCL 20 MG CAP PO SCH (10:17)
[2022-03-14 21:40] VITALS: BP 102/63
[2022-03-14] MEDS: ATORVASTATIN 20 MG TAB PO SCH (21:41)
[2022-03-15] MEDS: ACCU-CHEK COMFORT CURVE STRIP VI SCH ×6 (00:22→21:52)
[2022-03-15 04:17] VITALS: BP 143/88
[2022-03-15 09:00] VITALS: BP 117/68
[2022-03-15] MEDS: PANTOPRAZOLE 40 MG TAB PO SCH (09:38)
[2022-03-15] MEDS: BUPROPION HCL 150 MG PO SCH (09:38)
[2022-03-15] MEDS: FLUoxetine HCL 20 MG CAP PO SCH (09:38)
[2022-03-15] MEDS: LISINOPRIL 10 MG TAB PO SCH (09:39)
[2022-03-15] MEDS: BETAMETHASONE DIPROP0.05% TOPICAL CREAM 15GM TOP SCH ×2 (09:39→21:22)
[2022-03-15 13:00] VITALS: BP 133/77
[2022-03-15 16:32] VITALS: BP 102/62
[2022-03-15 20:52] VITALS: BP 114/74
[2022-03-15] MEDS: ATORVASTATIN 20 MG TAB PO SCH (21:22)
[2022-03-16 05:00] VITALS: BP 121/62
[2022-03-16] MEDS: ACCU-CHEK COMFORT CURVE STRIP VI SCH ×4 (06:16→21:45)
[2022-03-16 09:00] VITALS: BP 123/69
[2022-03-16] MEDS: BETAMETHASONE DIPROP0.05% TOPICAL CREAM 15GM TOP SCH ×2 (09:44→21:44)
[2022-03-16] MEDS: LISINOPRIL 10 MG TAB PO SCH (10:50)
[2022-03-16] MEDS: FLUoxetine HCL 20 MG CAP PO SCH (10:50)
[2022-03-16] MEDS: BUPROPION HCL 150 MG PO SCH (10:51)
[2022-03-16] MEDS: PANTOPRAZOLE 40 MG TAB PO SCH (10:51)
[2022-03-16 13:00] VITALS: BP 110/67
[2022-03-16 17:00] VITALS: BP 114/62
[2022-03-16 20:20] VITALS: BP 113/60
[2022-03-16] MEDS: ATORVASTATIN 20 MG TAB PO SCH (21:44)
[2022-03-16 21:48] VITALS: BP 113/60
[2022-03-17 05:00] VITALS: BP 116/66
[2022-03-17] MEDS: ACCU-CHEK COMFORT CURVE STRIP VI SCH ×4 (06:18→23:07)
[2022-03-17] MEDS: BUPROPION HCL 150 MG PO SCH (11:40)
[2022-03-17] MEDS: PANTOPRAZOLE 40 MG TAB PO SCH (11:41)
[2022-03-17] MEDS: BETAMETHASONE DIPROP0.05% TOPICAL CREAM 15GM TOP SCH ×2 (11:41→23:08)
[2022-03-17] MEDS: FLUoxetine HCL 20 MG CAP PO SCH (11:41)
[2022-03-17] MEDS: LISINOPRIL 10 MG TAB PO SCH (15:02)
[2022-03-17 22:00] VITALS: BP 118/71
[2022-03-17] MEDS: ATORVASTATIN 20 MG TAB PO SCH (23:08)
[2022-03-18 05:00] VITALS: BP 121/74
[2022-03-18] MEDS: ACCU-CHEK COMFORT CURVE STRIP VI SCH ×4 (06:35→21:51)
[2022-03-18 09:00] VITALS: BP 117/60
[2022-03-18] MEDS: BETAMETHASONE DIPROP0.05% TOPICAL CREAM 15GM TOP SCH ×2 (09:53→21:51)
[2022-03-18] MEDS: BUPROPION HCL 150 MG PO SCH (09:55)
[2022-03-18] MEDS: FLUoxetine HCL 20 MG CAP PO SCH (09:55)
[2022-03-18] MEDS: PANTOPRAZOLE 40 MG TAB PO SCH (09:55)
[2022-03-18] MEDS: LISINOPRIL 10 MG TAB PO SCH (10:54)
[2022-03-18 13:00] VITALS: BP 109/65
[2022-03-18 17:00] VITALS: BP 123/72
[2022-03-18] MEDS: ATORVASTATIN 20 MG TAB PO SCH (21:50)
[2022-03-18 22:00] VITALS: BP 118/70
[2022-03-19 05:00] VITALS: BP 119/70
[2022-03-19] MEDS: ACCU-CHEK COMFORT CURVE STRIP VI SCH ×4 (06:11→22:28)
[2022-03-19 08:00] VITALS: BP 129/72
[2022-03-19 09:14] VITALS: BP 129/72
[2022-03-19] MEDS: LISINOPRIL 10 MG TAB PO SCH (10:11)
[2022-03-19] MEDS: PANTOPRAZOLE 40 MG TAB PO SCH (10:11)
[2022-03-19] MEDS: BUPROPION HCL 150 MG PO SCH (10:12)
[2022-03-19] MEDS: FLUoxetine HCL 20 MG CAP PO SCH (10:15)
[2022-03-19] MEDS: BETAMETHASONE DIPROP0.05% TOPICAL CREAM 15GM TOP SCH ×2 (10:15→22:39)
[2022-03-19 12:32] VITALS: BP 115/76
[2022-03-19 16:42] VITALS: BP 112/64
[2022-03-19 22:00] VITALS: BP 121/61
[2022-03-19] MEDS: ATORVASTATIN 20 MG TAB PO SCH (22:28)
[2022-03-20 05:00] VITALS: BP 122/64
[2022-03-20] MEDS: ACCU-CHEK COMFORT CURVE STRIP VI SCH ×4 (06:30→22:38)
[2022-03-20 08:00] VITALS: BP 118/66
[2022-03-20 09:00] VITALS: BP 118/66
[2022-03-20] MEDS: FLUoxetine HCL 20 MG CAP PO SCH (09:34)
[2022-03-20] MEDS: BUPROPION HCL 150 MG PO SCH (09:34)
[2022-03-20] MEDS: LISINOPRIL 10 MG TAB PO SCH (09:34)
[2022-03-20] MEDS: PANTOPRAZOLE 40 MG TAB PO SCH (09:34)
[2022-03-20] MEDS: BETAMETHASONE DIPROP0.05% TOPICAL CREAM 15GM TOP SCH ×2 (09:35→22:42)
[2022-03-20 13:00] VITALS: BP 130/80
[2022-03-20 17:00] VITALS: BP 109/64
[2022-03-20 22:00] VITALS: BP 103/64
[2022-03-20] MEDS: ATORVASTATIN 20 MG TAB PO SCH (22:37)
[2022-03-21 05:00] VITALS: BP 103/58
[2022-03-21] MEDS: ACCU-CHEK COMFORT CURVE STRIP VI SCH ×4 (06:10→21:36)
[2022-03-21 09:00] VITALS: BP 108/65
[2022-03-21] MEDS: BUPROPION HCL 150 MG PO SCH (10:24)
[2022-03-21] MEDS: PANTOPRAZOLE 40 MG TAB PO SCH (10:24)
[2022-03-21] MEDS: FLUoxetine HCL 20 MG CAP PO SCH (10:26)
[2022-03-21] MEDS: LISINOPRIL 10 MG TAB PO SCH ×2 (10:39→11:02)
[2022-03-21] MEDS: BETAMETHASONE DIPROP0.05% TOPICAL CREAM 15GM TOP SCH ×2 (10:41→21:39)
[2022-03-21] MEDS: ACETAMINOPHEN 325 MG TAB PO PRN (10:45)
[2022-03-21 13:00] VITALS: BP 97/69
[2022-03-21 17:00] VITALS: BP 99/69
[2022-03-21] MEDS: ATORVASTATIN 20 MG TAB PO SCH (21:40)
[2022-03-22 05:00] VITALS: BP 131/65
[2022-03-22] MEDS: ACCU-CHEK COMFORT CURVE STRIP VI SCH ×3 (06:25→17:00)
[2022-03-22] MEDS: FLUoxetine HCL 20 MG CAP PO SCH (11:33)
[2022-03-22] MEDS: PANTOPRAZOLE 40 MG TAB PO SCH (11:33)
[2022-03-22] MEDS: LISINOPRIL 10 MG TAB PO SCH (11:34)
[2022-03-22] MEDS: BUPROPION HCL 150 MG PO SCH (11:35)
[2022-03-22] MEDS: BETAMETHASONE DIPROP0.05% TOPICAL CREAM 15GM TOP SCH (11:42)
== END 2022-03-22 17:40 | DRG 817 ==
LOC: ER 15:05 → EDBD 15:05 → TELE 20:43 → DOU IN ICU 03-08 00:30 → TELE-WESTW 03-12 15:04 → WEST WING 03-18 18:51
PROVIDERS: ADMIT Nurse Practitioner; ATTEND Internal Medicine Pulmonary Disease
DX: T38.3X2A Poisoning by insulin and oral hypoglycemic [antidiabetic] drugs, intentional self-harm, initial encounter (principal); E11.649 Type 2 diabetes mellitus with hypoglycemia without coma; I11.0 Hypertensive heart disease with heart failure; I50.9 Heart failure, unspecified; R65.10 Systemic inflammatory response syndrome (SIRS) of non-infectious origin without acute organ dysfunction; F33.2 Major depressive disorder, recurrent severe without psychotic features; Z20.822 Contact with and (suspected) exposure to COVID-19; E66.9 Obesity, unspecified; E03.9 Hypothyroidism, unspecified; F10.10 Alcohol abuse, uncomplicated; Z80.0 Family history of malignant neoplasm of digestive organs; Z68.37 Body mass index [BMI] 37.0-37.9, adult; Z82.49 Family history of ischemic heart disease and other diseases of the circulatory system; Z83.3 Family history of diabetes mellitus; Z79.4 Long term (current) use of insulin; R00.1 Bradycardia, unspecified
CPT/HCPCS: 36415; 80048; 80053; 80307; 80320; 80329; 81001; 82962; 85025; 87081; 93005; 96361; 96374; G0378